=== PATIENT | male | born 1955 | race American Indian/Alaskan Native ===

== ENCOUNTER 2016-10-26 14:30 | Emergency (ER) | payer MEDICARE, OTHER ==
--- NOTE | 2016-10-26 14:58 | Emergency Department Report ---
Entered by KATHY BOWLING, acting as scribe for CHRIS MCCONNELL NP. Chief Complaint: Dizziness Stated Complaint: DIZZY,INCOHERENT/WEAKNESS/DIALYSIS 10/26 Time Seen by Provider: 10/26/16 14:41 - HPI History of Present Illness: 61 y/o male presents with dizziness that started earlier today as a result of his blood pressure dropping after dialysis today. He states they took too much fluid out. Sx include generalized weakness but pt denies chest pain or abd pain. He reports that his dizziness has improved since onset. PT's family member states he might have passed out, but she did not see it - ROS Review of Systems: +urinary incontinence +dizziness +generalized weakness -chest pain -abd pain - Exam Vital Signs: Vital Signs 10/26/16 14:42 Temperature 97.7 F Pulse Rate 61 Respiratory 20 Rate Blood Pressure 125/65 O2 Sat by Pulse 99 Oximetry Physical Exam: generalized weakness, alert and appropriate steady gait MSE screening note: Focused history and physical exam performed. Due to findings the following was ordered: ct, ekg, labs ED Disposition for MSE Condition: Stable This documentation as recorded by the scribe,KATHY BOWLING,accurately reflects the service I personally performed and the decisions made by me,CHRIS MCCONNELL , PHOTOENGRAVING [employer] APPRENTICE.
[2016-10-26 15:14] LABS: Basophils % (Auto) 0.6 % (0.0-1.8); Eosinophils % (Auto) 1.5 % (0.0-4.3); Hematocrit 37.4 % (35.5-45.6); Hemoglobin 12.3 gm/dl (11.8-15.2); Mean Corpuscular HGB Conc 33 % (32-34); Mean Corpuscular Hemoglobin 30 pg (28-32); Mean Corpuscular Volume 90 fl (84-94); Platelet Count 188 K/mm3 (140-440); Red Blood Count 4.15 M/mm3 (3.65-5.03); Red Cell Distribution Width 16.6 % (13.2-15.2); White Blood Count 4.4 K/mm3 (4.5-11.0)
[2016-10-26 15:24] LABS: INR 0.99 (0.87-1.13); Partial Thromboplastin Time 26.9 Sec. (24.2-36.6)
[2016-10-26 15:36] LABS: Albumin/Globulin Ratio 1.1 %; BUN/Creatinine Ratio 3.54; Bilirubin,Total 0.3 mg/dL (0.1-1.2); Calcium 8.6 mg/dL (8.4-10.2); Chloride 98.1 mmol/L (98-107); Potassium 3.6 mmol/L (3.6-5.0); Total Protein 7.6 g/dL (6.3-8.2)
--- NOTE | 2016-10-26 15:53 | Cat Scan Report ---
CRANIAL CT SCAN: History: Syncope. Serial contiguous axial images were obtained through the cranium. Intravenous contrast material was not administered. The ventricles are normal in size and appearance. There is no mass effect or midline shift. No areas of abnormally increased or decreased attenuation are seen. No mass lesion is seen. The mastoid air cells and visualized portions of the sinuses are normal. IMPRESSION: Cranial CT scan within normal limits.
--- NOTE | 2016-10-26 18:15 | Emergency Department Report ---
- General Chief complaint: Weakness Stated complaint: DIZZY,INCOHERENT/WEAKNESS/DIALYSIS 10/26 Time Seen by Provider: 10/26/16 14:41 Source: patient Mode of arrival: Ambulatory Limitations: No Limitations - History of Present Illness MD Complaint: generalized weakness, lack of energy -: Gradual Time: 18:12 Location: generalized Severity: moderate Improves with: none Worsens with: none Associated Symptoms: denies: chest pain, confusion, dark stools, diaphoresis, dysuria, easy bruising, fever/chills, headaches, loss of appetite, nausea/ vomiting, myalgias, shortness of breath - Related Data Home Medications Medication Instructions Recorded Confirmed Last Taken Aspirin [Aspirin BABY CHEW TAB] 81 mg PO ONCE 08/29/13 08/27/16 07/26/16 Bisoprolol Fumarate [Zebeta] 10 mg PO DAILY 04/24/15 08/27/16 07/26/16 ISOSORBIDE MONOnitrate [Imdur ER] 30 mg PO QAC 04/24/15 08/27/16 07/26/16 Albuterol Sulfate [Proair 90 mcg IH QID PRN 12/16/15 08/27/16 07/26/16 Respiclick] Atorvastatin Calcium [Lipitor] 80 mg PO QHS 12/16/15 08/27/16 07/26/16 Docusate Sodium [Colace CAP] 100 mg PO BID PRN 12/16/15 08/27/16 07/26/16 Ergocalciferol (Vitamin D2) 50,000 unit PO QWEEK 12/16/15 08/27/16 07/26/16 [Vitamin D2] Omeprazole 40 mg PO BID 12/16/15 08/27/16 07/26/16 Sertraline [Zoloft] 10 mg PO QDAY 08/27/16 08/27/16 07/26/16 Tamsulosin [Flomax] 0.4 mg PO DAILY 08/27/16 08/27/16 07/26/16 amLODIPine [Norvasc] 10 mg PO DAILY 08/27/16 08/27/16 07/26/16 cloNIDine [Clonidine] 1 each TRANSDERMA QWEEK 08/27/16 08/27/16 07/25/16 Previous Rx's Medication Instructions Recorded Last Taken Type Losartan [Cozaar] 50 mg PO QDAY #30 10/12/16 05/22/17 Rx hydrALAZINE [Apresoline TAB] 25 mg PO TID #90 tablet 12/17/15 07/26/16 Rx Prasugrel [Effient] 10 mg PO QDAY #30 tablet 12/20/15 07/26/16 Rx Allergies Allergy/AdvReac Type Severity Reaction Status Date / Time metformin Allergy Intermediate Diarrhea Verified 08/27/16 12:21 lisinopril Allergy Unknown Verified 08/27/16 12:21 ED Review of Systems ROS: Stated complaint: DIZZY,INCOHERENT/WEAKNESS/DIALYSIS 10/26 Other details as noted in HPI Comment: All other systems reviewed and negative ED Past Medical Hx - Past Medical History Previous Medical History?: Yes Hx Hypertension: Yes Hx Heart Attack/AMI: Yes Hx Congestive Heart Failure: Yes Hx Diabetes: Yes Hx GERD: Yes Hx Liver Disease: Yes (Hepatitis C) Hx Renal Disease: Yes (CKD) Hx Asthma: No Hx COPD: No Hx HIV: No Additional medical history: HEP C, HIGH CHOLESTEROL - Surgical History Past Surgical History?: Yes Hx Pacemaker: No Hx Internal Defibrillator: No Additional Surgical History: left inguinal hernia - Social History Smoking Status: Never Smoker Substance Use Type: None - Medications Home Medications: Home Medications Medication Instructions Recorded Confirmed Last Taken Type Aspirin [Aspirin BABY CHEW TAB] 81 mg PO ONCE 08/29/13 08/27/16 07/26/16 History Bisoprolol Fumarate [Zebeta] 10 mg PO DAILY 04/24/15 08/27/16 07/26/16 History ISOSORBIDE MONOnitrate [Imdur ER] 30 mg PO QAC 04/24/15 08/27/16 07/26/16 History Albuterol Sulfate [Proair 90 mcg IH QID PRN 12/16/15 08/27/16 07/26/16 History Respiclick] Atorvastatin Calcium [Lipitor] 80 mg PO QHS 12/16/15 08/27/16 07/26/16 History Docusate Sodium [Colace CAP] 100 mg PO BID PRN 12/16/15 08/27/16 07/26/16 History Ergocalciferol (Vitamin D2) 50,000 unit PO QWEEK 12/16/15 08/27/16 07/26/16 History [Vitamin D2] Omeprazole 40 mg PO BID 12/16/15 08/27/16 07/26/16 History Losartan [Cozaar] 50 mg PO QDAY #30 12/17/15 08/27/16 07/26/16 Rx hydrALAZINE [Apresoline TAB] 25 mg PO TID #90 tablet 12/17/15 08/27/16 07/26/16 Rx Prasugrel [Effient] 10 mg PO QDAY #30 tablet 12/20/15 08/27/16 07/26/16 Rx Sertraline [Zoloft] 10 mg PO QDAY 08/27/16 08/27/16 07/26/16 History Tamsulosin [Flomax] 0.4 mg PO DAILY 08/27/16 08/27/16 07/26/16 History amLODIPine [Norvasc] 10 mg PO DAILY 08/27/16 08/27/16 07/26/16 History cloNIDine [Clonidine] 1 each TRANSDERMA QWEEK 08/27/16 08/27/16 07/25/16 History ED Physical Exam - General Limitations: No Limitations General appearance: alert, in no apparent distress - Head Head exam: Present: atraumatic, normocephalic - Eye Eye exam: Present: normal appearance, PERRL - ENT ENT exam: Present: mucous membranes moist - Neck Neck exam: Present: normal inspection - Respiratory Respiratory exam: Present: normal lung sounds bilaterally. Absent: respiratory distress - Cardiovascular Cardiovascular Exam: Present: regular rate, normal rhythm. Absent: systolic murmur, diastolic murmur, rubs, gallop - GI/Abdominal GI/Abdominal exam: Present: soft, normal bowel sounds - Rectal Rectal exam: Present: deferred - Extremities Exam Extremities exam: Present: normal inspection - Back Exam Back exam: Present: normal inspection - Neurological Exam Neurological exam: Present: alert, oriented X3 - Psychiatric Psychiatric exam: Present: normal affect, normal mood - Skin Skin exam: Present: warm, dry, intact, normal color. Absent: rash ED Course Vital Signs 10/26/16 14:42 Temperature 97.7 F Pulse Rate 61 Respiratory 20 Rate Blood Pressure 125/65 O2 Sat by Pulse 99 Oximetry ED Medical Decision Making - Lab Data Result diagrams: 10/26/16 14:56 10/26/16 14:56 - EKG Data When compared to previous EKG there are: no significant change Interpretation: no acute changes - Radiology Data Radiology results: report reviewed, image reviewed - Medical Decision Making patient doing well, no complaints labs unchanged, doesnt want to stay and wished to go home/ Critical care attestation.: If time is entered above; I have spent that time in minutes in the direct care of this critically ill patient, excluding procedure time. ED Disposition Clinical Impression: ESRD (end stage renal disease), Hypotension Disposition: DC-01 TO HOME OR SELFCARE Is pt being admited?: No Does the pt Need Aspirin: No Condition: Good Referrals: PRIMARY CARE, [Primary Care Provider] - 3-5 Days Time of Disposition: 18:13
[2016-10-26 18:20] VITALS: BP 170/73
== END 2016-10-26 19:46 | disposition home or self-care (01) ==
LOC: ED 14:30
DX: I95.9 Hypotension, unspecified (principal); E11.22 Type 2 diabetes mellitus with diabetic chronic kidney disease; I12.0 Hypertensive chronic kidney disease with stage 5 chronic kidney disease or end stage renal disease; N18.6 End stage renal disease; I50.9 Heart failure, unspecified; K21.9 Gastro-esophageal reflux disease without esophagitis
CPT/HCPCS: 36415; 70450; 80053; 80061; 82962; 84484; 85025; 85610; 85730; 93005; 93010

== ENCOUNTER 2019-01-30 01:13 | Inpatient (IN) | payer MEDICARE, OTHER ==
--- NOTE | 2019-01-30 02:47 | XRay Report ---
CHEST 1 VIEW, 01/30/2019 2:24 AM CLINICAL INFORMATION/INDICATION: Right-sided chest pain COMPARISON: Chest radiograph, 12/17/2015 FINDINGS: SUPPORT DEVICES: None. HEART: The cardiac silhouette is moderately enlarged. LUNGS/PLEURA: Faint interstitial prominence suggests pulmonary vascular congestion. There is no focal airspace consolidation or significant pleural effusion. ADDITIONAL FINDINGS: No additional acute findings. IMPRESSION: 1. Moderate enlargement of the cardiac silhouette. 2. Faint interstitial prominence suggesting vascular congestion. Signer Name: Rufina Healy MD Signed: 01/30/2019 2:43 AM Workstation Name: [id number]
[2019-01-30 03:04] LABS: Basophils % (Auto) 0.4 % (0.0-1.8); Eosinophils # (Auto) 0.1 K/mm3 (0.0-0.4); Eosinophils % (Auto) 0.7 % (0.0-4.3); Hematocrit 29.6 % (35.5-45.6); Lymphocytes # (Auto) 0.5 K/mm3 (1.2-5.4); Lymphocytes % (Auto) 6.2 % (13.4-35.0); Mean Corpuscular HGB Conc 34 % (32-34); Mean Corpuscular Volume 92 fl (84-94); Monocytes # (Auto) 0.4 K/mm3 (0.0-0.8); Monocytes % (Auto) 4.9 % (0.0-7.3); Platelet Count 161 K/mm3 (140-440); Red Blood Count 3.22 M/mm3 (3.65-5.03); Red Cell Distribution Width 16.3 % (13.2-15.2)
[2019-01-30] MEDS ORDERED: levoFLOXacin 750 MG TAB PO ONE (03:22)
[2019-01-30] MEDS ORDERED: oxyCODONE /ACETAMINOPHEN 5-325MG TAB PO ONE (03:22)
--- NOTE | 2019-01-30 03:22 | Emergency Department Report ---
ED Chest Pain HPI - General Chief Complaint: Chest Pain Stated Complaint: ANGEL CHEST PAIN Time Seen by Provider: 01/30/19 03:12 Source: patient Mode of arrival: Wheelchair Limitations: No Limitations - History of Present Illness Initial Comments: Mr. Reyes is a very pleasant 63-year-old male with history of end-stage renal disease on dialysis Tuesday, congestive heart failure, diabetes mellitus, GERD, coronary artery disease, hypertension, hepatitis C, dyslipidemia who presents with right-sided chest pain since 9 PM. He has shortn ess of breath nausea. He has productive cough. Also has been swelling belching. Pain is worse with cough. Sharp aching pain. No radiation. Subjective fever and chills. History of tobacco abuse. Productive cough has been present for [address] [facility] Martin Smiley MD Complaint: chest pain -: Gradual, This evening Onset: during rest Pain Location: right chest Pain Radiation: none Severity: moderate Quality: sharp Consistency: constant Improves With: nothing Worsens With: other (cough) Other Symptoms: cough - Related Data Home Medications Medication Instructions Recorded Confirmed Last Taken Aspirin [Aspirin BABY CHEW TAB] 81 mg PO ONCE 08/29/13 08/27/16 07/26/16 Bisoprolol Fumarate [Zebeta] 10 mg PO DAILY 04/24/15 08/27/16 07/26/16 ISOSORBIDE MONOnitrate [Imdur ER] 30 mg PO QAC 04/24/15 08/27/16 07/26/16 Albuterol Sulfate [Proair 90 mcg IH QID PRN 12/16/15 08/27/16 07/26/16 Respiclick] Atorvastatin Calcium [Lipitor] 80 mg PO QHS 12/16/15 08/27/16 07/26/16 Docusate Sodium [Colace CAP] 100 mg PO BID PRN 12/16/15 08/27/16 07/26/16 Ergocalciferol (Vitamin D2) 50,000 unit PO QWEEK 12/16/15 08/27/16 07/26/16 [Vitamin D2] Omeprazole 40 mg PO BID 12/16/15 08/27/16 07/26/16 Sertraline [Zoloft] 10 mg PO QDAY 08/27/16 08/27/16 07/26/16 Tamsulosin [Flomax] 0.4 mg PO DAILY 08/27/16 08/27/16 07/26/16 amLODIPine 10 mg PO DAILY 08/27/16 08/27/16 07/26/16 cloNIDine [Clonidine] 1 each TRANSDERMA QWEEK 08/27/16 08/27/16 07/25/16 Previous Rx's Medication Instructions Recorded Last Taken Type Losartan [Cozaar] 50 mg PO QDAY #30 12/17/15 07/26/16 Rx hydrALAZINE [Apresoline TAB] 25 mg PO TID #90 tablet 12/17/15 07/26/16 Rx Prasugrel [Effient] 10 mg PO QDAY #30 tablet 12/20/15 07/26/16 Rx Allergies Allergy/AdvReac Type Severity Reaction Status Date / Time metformin Allergy Intermediate Diarrhea Verified 08/27/16 12:21 lisinopril Allergy Unknown Verified 08/27/16 12:21 Heart Score - HEART Score History: Slightly suspicious EKG: Significant ST-depression Age: 45-65 Risk factors: > 3 risk factors or hx of atherosclerotic disease Troponin: < normal limit HEART Score: 5 ED Review of Systems ROS: Stated complaint: ANGEL CHEST PAIN Other details as noted in HPI Comment: All other systems reviewed and negative Constitutional: denies: fever, malaise Respiratory: cough, shortness of breath Cardiovascular: chest pain ED Past Medical Hx - Past Medical History Previous Medical History?: Yes Hx Hypertension: Yes Hx Heart Attack/AMI: Yes Hx Congestive Heart Failure: Yes Hx Diabetes: Yes Hx GERD: Yes Hx Liver Disease: Yes (Hepatitis C) Hx Renal Disease: Yes (CKD) Hx Asthma: No Hx COPD: No Hx HIV: No Additional medical history: HEP C, HIGH CHOLESTEROL - Surgical History Past Surgical History?: Yes Hx Pacemaker: No Hx Internal Defibrillator: No Additional Surgical History: left inguinal hernia - Social History Smoking Status: Current Every Day Smoker - Medications Home Medications: Home Medications Medication Instructions Recorded Confirmed Last Taken Type Aspirin [Aspirin BABY CHEW TAB] 81 mg PO ONCE 08/29/13 08/27/16 07/26/16 History Bisoprolol Fumarate [Zebeta] 10 mg PO DAILY 04/24/15 08/27/16 07/26/16 History ISOSORBIDE MONOnitrate [Imdur ER] 30 mg PO QAC 04/24/15 08/27/16 07/26/16 History Albuterol Sulfate [Proair 90 mcg IH QID PRN 12/16/15 08/27/16 07/26/16 History Respiclick] Atorvastatin Calcium [Lipitor] 80 mg PO QHS 12/16/15 08/27/16 07/26/16 History Docusate Sodium [Colace CAP] 100 mg PO BID PRN 12/16/15 08/27/16 07/26/16 History Ergocalciferol (Vitamin D2) 50,000 unit PO QWEEK 12/16/15 08/27/16 07/26/16 Hist ory [Vitamin D2] Omeprazole 40 mg PO BID 12/16/15 08/27/16 07/26/16 History Losartan [Cozaar] 50 mg PO QDAY #30 12/17/15 08/27/16 07/26/16 Rx hydrALAZINE [Apresoline TAB] 25 mg PO TID #90 tablet 12/17/15 08/27/16 07/26/16 Rx Prasugrel [Effient] 10 mg PO QDAY #30 tablet 12/20/15 08/27/16 07/26/16 Rx Sertraline [Zoloft] 10 mg PO QDAY 08/27/16 08/27/16 07/26/16 History Tamsulosin [Flomax] 0.4 mg PO DAILY 08/27/16 08/27/16 07/26/16 History amLODIPine 10 mg PO DAILY 08/27/16 08/27/16 07/26/16 History cloNIDine [Clonidine] 1 each TRANSDERMA QWEEK 08/27/16 08/27/16 07/25/16 History ED Physical Exam - General Limitations: No Limitations General appearance: alert, in no apparent distress, other (frequent cough) - Head Head exam: Present: atraumatic, normocephalic - Eye Eye exam: Present: conjunctival injection - ENT ENT exam: Present: mucous membranes moist - Neck Neck exam: Present: normal inspection, full ROM - Respiratory Respiratory exam: Present: normal lung sounds bilaterally. Absent: respiratory distress, wheezes, rales, rhonchi - Cardiovascular Cardiovascular Exam: Present: regular rate, normal rhythm, normal heart sounds. Absent: systolic murmur, diastolic murmur, rubs, gallop - GI/Abdominal GI/Abdominal exam: Present: soft, normal bowel sounds. Absent: distended, tenderness, guarding, rebound - Rectal Rectal exam: Present: deferred - Extremities Exam Extremities exam: Present: normal inspection - Neurological Exam Neurological exam: Present: alert, oriented X3 - Psychiatric Psychiatric exam: Present: normal affect, normal mood - Skin Skin exam: Present: warm, dry, intact, normal color. Absent: rash ED Course Vital Signs 01/30/19 01/30/19 01:32 02:04 Temperature 98.5 F 98.5 F Pulse Rate 102 H 106 H Respiratory 18 18 Rate Blood Pressure 201/97 201/97 O2 Sat by Pulse 97 Oximetry JASSI score - Jassi Score Age > 65: (0) No Aspirin use within the Past 7 Days: (1) Yes 3 or more CAD Risk Factors: (1) Yes 2 or more Angina events in past 24 hrs: (1) Yes Known CAD with more than 50% Stenosis: (0) No Elevated Cardiac Markers: (1) Yes ST Deviation Greater than 0.5mm: (0) No JASSI Score: 4 ED Medical Decision Making - Lab Data Result diagrams: 01/30/19 02:41 01/30/19 02:41 - EKG Data 01/30/19 03:21 EKG obtained 0122 Sinus tachycardia rate 112 beats a minute normal axis prolonged QT interval positive LVH no significant ST elevation comparable to EKGs obtained in 2016 and 201601/30/19 03:22 - Radiology Data Radiology results: report reviewed Vascular congestion, enlarged cardiac silhouette according to chest radiograph CT angio chest: Extensive right lung pneumonia no pulmonary embolism - Medical Decision Making HCAP admitted to hospitalist service, Mr. Reyes did receive IV contrast for CTA Dr. Hanson graciously agreed to consult on patient and arrange dialysis Dr. Eller accepted Mr. Reyes to the hospitalist service Critical care attestation.: If time is entered above; I have spent that time in minutes in the direct care of this critically ill patient, excluding procedure time. ED Disposition Clinical Impression: HCAP (healthcare-associated pneumonia), ESRD (end stage renal disease) on dialysis, Hypertensive urgency Disposition: OP ADMIT IP TO THIS HOSP Is pt being admited?: Yes Does the pt Need Aspirin: No Condition: Stable Instructions: Bacterial Pneumonia (ED)
--- NOTE | 2019-01-30 04:38 | Cat Scan Report ---
CTA CHEST WITH IV CONTRAST, 01/30/2019 INDICATION: Shortness of breath TECHNIQUE: Axial CT images were obtained through the chest after injection of IV contrast. Coronal oblique 2-D reconstruction images were produced. 3 plane MIP reconstruction images were produced at an [employer] workstation. All CTs at this facility utilize dose reduction techniques including automated expos ure control, iterative reconstruction and weight based dosing when appropriate to reduce patient radi ation dose to as low as reasonable achievable. COMPARISON: Chest radiograph, 01/30/2019 FINDINGS: No filling defects are visualized within the central or segmental pulmonary arteries to suggest pulmo nary embolism. The heart is moderately enlarged. Evaluation of the lung parenchyma demonstrates diffu se airspace disease throughout the right lung. The left lung appears grossly clear. There is mild dany ateral interstitial thickening. There is no evidence of pleural effusion. Limited imaging of the upper abdomen demonstrates atherosclerotic vascular calcifications within the visualized mesenteric vessels. There is a single calcified stone within the gallbladder measuring 2 c m.. IMPRESSION: 1. No evidence of pulmonary embolism. 2. Diffuse right lung airspace disease most compatible with pneumonia. 3. Nonspecific bilateral interstitial thickening that can be related to mild pulmonary edema. 4. Moderate cardiomegaly. Signer Name: Rufina Healy MD Signed: 01/30/2019 4:33 AM Workstation Name: [id number]
[2019-01-30 04:59] LABS: Calcium 9.6 mg/dL (8.4-10.2); Chol/HDL Ratio 4.17 %
[2019-01-30] MEDS ORDERED: VANCOMYCIN PHARMACY TO DOSE IV SCH (05:00)
[2019-01-30] MEDS ORDERED: VANCOMYCIN 1,500 MG in SODIUM CHLORIDE 0.9% 500 ML 500 ML IV ONE (05:00)
[2019-01-30] MEDS: CEFEPIME/NS 1 GM/100 ML 1 GM/100 ML BAG IV SCH (05:15)
[2019-01-30] MEDS ORDERED: CEFEPIME/NS 2 GM/100 ML 2 GM/100 ML BAG IV SCH (06:00)
[2019-01-30] MEDS ORDERED: guaiFENesin DM 200/20 MG ORAL LIQD 10 ML ONE (06:12)
[2019-01-30] MEDS ORDERED: guaiFENesin DM 200/20 MG ORAL LIQD 10 ML PO PRN (06:15)
[2019-01-30] MEDS ORDERED: hydrALAZINE 20 MG/1 ML INJ IV ONE ×2 (06:49→08:25)
[2019-01-30] MEDS ORDERED: hydrALAZINE 20 MG/1 ML INJ ONE ×2 (06:49→08:40)
[2019-01-30] MEDS ORDERED: SODIUM CHLORIDE 0.9% 100 ML IV PRN ×2 (07:33→11:30)
[2019-01-30] MEDS ORDERED: ONDANSETRON 4 MG/2 ML INJ IV PRN (08:24)
[2019-01-30] MEDS ORDERED: NON-FORMULARY EACH (Albuterol Sulfate [Proair Respiclick] 90 MCG) IH PRN (08:37)
[2019-01-30] MEDS ORDERED: ONDANSETRON 4 MG/2 ML INJ ONE (08:40)
[2019-01-30] MEDS ORDERED: ASPIRIN 81 MG TAB CHEW PO SCH (09:00)
[2019-01-30] MEDS ORDERED: ERGOCALCIFEROL 50000 UNIT PO SCH (10:00)
[2019-01-30] MEDS ORDERED: BISOPROLOL FUMARATE 10 MG PO SCH (10:00)
[2019-01-30] MEDS ORDERED: LOSARTAN 50 MG PO SCH (10:00)
--- NOTE | 2019-01-30 10:38 | Consultation ---
History of Present Illness - Reason for Consult end stage renal disease - History of Present Illness Mr. Reyes is a 63-year-old male with history of ESRD on HD Tuesday, CHF, diabetes mellitus, GERD, coronary artery disease, hypertension, hepatitis C, dyslipidemia who presents with right-sided chest pain, shortness of breath. Noted to have productive cough. Admitted for likely pneumonia and chest pain rule out. He usually follows with digital court reporter Dr. Lara and dialyzes at [facility]. Denies any recent issues with HD. Seen on HD at time of consult, no issues noted. Past History Past Medical History: diabetes, dialysis, ESRD, heart failure, hypertension Past Surgical History: No surgical history Social history: no significant social history Family history: no significant family history Medications and Allergies Allergies Allergy/AdvReac Type Severity Reaction Status Date / Time metformin Allergy Intermediate Diarrhea Verified 08/27/16 12:21 lisinopril Allergy Unknown Verified 08/27/16 12:21 Home Medications Medication Instructions Recorded Confirmed Last Taken Type Aspirin [Aspirin BABY CHEW TAB] 81 mg PO ONCE 08/29/13 08/27/16 07/26/16 History Bisoprolol Fumarate [Zebeta] 10 mg PO DAILY 04/24/15 08/27/16 07/26/16 History ISOSORBIDE MONOnitrate [Imdur ER] 30 mg PO QAC 04/24/15 08/27/16 07/26/16 History Albuterol Sulfate [Proair 90 mcg IH QID PRN 12/16/15 08/27/16 07/26/16 History Respiclick] Atorvastatin Calcium [Lipitor] 80 mg PO QHS 12/16/15 08/27/16 07/26/16 History Docusate Sodium [Colace CAP] 100 mg PO BID PRN 12/16/15 08/27/16 07/26/16 History Ergocalciferol (Vitamin D2) 50,000 unit PO QWEEK 12/16/15 08/27/16 07/26/16 History [Vitamin D2] Omeprazole 40 mg PO BID 12/16/15 08/27/16 07/26/16 History Losartan [Cozaar] 50 mg PO QDAY #30 12/17/15 08/27/16 07/26/16 Rx hydrALAZINE [Apresoline TAB] 25 mg PO TID #90 tablet 12/17/15 08/27/16 07/26/16 Rx Prasugrel [Effient] 10 mg PO QDAY #30 tablet 12/20/15 08/27/16 07/26/16 Rx Sertraline [Zoloft] 10 mg PO QDAY 08/27/16 08/27/16 07/26/16 History Tamsulosin [Flomax] 0.4 mg PO DAILY 08/27/16 08/27/16 07/26/16 History amLODIPine 10 mg PO DAILY 08/27/16 08/27/16 07/26/16 History cloNIDine [Clonidine] 1 each TRANSDERMA QWEEK 08/27/16 08/27/16 07/25/16 History Active Meds: Active Medications Amlodipine Besylate (Amlodipine) 10 mg PO DAILY [facility] Aspirin (Baby Aspirin) 81 mg PO ONCE [facility] Stop: 01/30/19 11:00 Atorvastatin Calcium (Lipitor) 80 mg PO QHS [facility] Clonidine HCl (Catapres-Tts Patch) mg TD QWEEK [facility] Docusate Sodium (Colace) 100 mg PO BID PRN PRN Reason: Constipation Guaifenesin (Guaifenesin Dm Syrup) 10 ml PO Q6HR PRN PRN Reason: Cough Last Admin: 01/30/19 06:26 Dose: 10 ml Documented by: Hydralazine HCl (Apresoline) 25 mg PO TID [facility] Cefepime HCl (Cefepime/Ns 1 Gm/100 Ml) 1 gm in 100 mls @ 200 mls/hr IV Q24H [facility]; Protocol Last Admin: 01/30/19 05:15 Dose: 200 mls/hr Documented by: Sodium Chloride (Nacl 0.9%) 100 mls @ 999 mls/hr IV LUIS PRN PRN Reason: Hypotension Sodium Chloride (Nacl 0.9%) 100 mls @ 999 mls/hr IV LUIS PRN PRN Reason: Hypotension Isosorbide Mononitrate (Imdur) 30 mg PO QAC [facility] Miscellaneous Medication (Losartan [Cozaar]) 50 mg PO QDAY [facility] Miscellaneous Medication (Ergocalciferol (Vitamin D2) [Vitamin D2]) 50,000 unit PO QWEEK [facility] Miscellaneous Medication (Bisoprolol Fumarate [Zebeta]) 10 mg PO DAILY [facility] Miscellaneous Medication (Albuterol Sulfate [Proair Respiclick]) 90 mcg IH QID PRN PRN Reason: Shortness Of Breath Ondansetron HCl (Zofran) 4 mg IV Q6H PRN PRN Reason: Nausea And Vomiting Last Admin: 01/30/19 08:48 Dose: 4 mg Documented by: Prasugrel (Effient) 10 mg PO QDAY [facility] Sertraline HCl (Zoloft) 10 mg PO QDAY [facility] Tamsulosin HCl (Flomax) 0.4 mg PO DAILY [facility] Review of Systems All systems: negative (as per HPI) Exam - Vital Signs Vital signs: Vital Signs Temp Pulse Resp BP Pulse Ox 98.5 F 102 H 18 201/97 97 01/30/19 01:32 01/30/19 01:32 01/30/19 01:32 01/30/19 01:32 01/30/19 01:32 - General Appearance General appearance: well-developed, well-nourished, appears stated age EENT: PERRL, mucous membranes moist Neck: Present: neck supple, trachea midline Respiratory: Clear to Ascultation Heart: regular, S1S2 Gastrointestinal: Present: normoactive bowel sounds. Absent: tenderness, distended Integumentary: no rash, warm and dry Neurologic: no focal deficit, no asterixis Musculoskeletal: Absent: deformities Psychiatric: mood/affect appropriate Results - Lab Results 01/30/19 02:41 01/30/19 02:41 Most recent lab results Calcium 9.6 mg/dL (8.4-10.2) 01/30/19 02:41 Assessment and Plan This is a 63 year old man with ESRD who presents with concerns for chest pain and pneumonia. # ESRD: will continue HD // or prn based on labs/volume. Due for HD today - avoid nephrotoxins - renal diet - renally dose medications - access intact - daily renal labs # HTN/Volume: remains with BP uncontrolled with systolic in 190s. UF as donato erated with HD, resume home medications, and will monitor # Anemia of CKD: hemoglobin at goal, ESAs as indicated # Secondary Hyperparathyroidism: continue home binders, will provide vitamin D analog if indicated # Tropinemia: possibly stress induced, follow up with cardiology recommendations # Pneumonia: antibiotics per primary
[2019-01-30] MEDS ORDERED: ALBUTEROL 2.5 MG/3 ML NEBU IH PRN (11:53)
[2019-01-30] MEDS ORDERED: DOCUSATE SODIUM 100 MG CAP PO PRN (12:00)
[2019-01-30] MEDS ORDERED: cloNIDine TTS 0.3 MG/24 HR PATCH TD SCH (12:00)
[2019-01-30] MEDS ORDERED: LOSARTAN 50 MG TAB PO SCH (12:00)
[2019-01-30] MEDS ORDERED: hydrALAZINE 25 MG TAB PO SCH (14:00)
[2019-01-30 14:20] LABS: Hepatitis B Surface Antigen Non-Reactive (Negative); Hepatitis C Virus Antibody Reactive (NonReactive)
--- NOTE | 2019-01-30 14:23 | History and Physical Report ---
History of Present Illness Date of examination: 01/23/19 Date of admission: 01/30/19 07:03 Chief complaint: Chest pain shortness of breath History of present illness: 63-year-old male patient with significant past medical history of end-stage renal disease on hemodialysis ,coronary artery disease status post PCI to proximal RCA in 2016, congestive heart failure ,hypertension ,hepatitis C, dyslipidemia ,diabetes mellitus, presented to the emergency room with Right-sided chest pain shortness of breath and nausea since last night Patient also complains of productive cough Grade sister's pain between 4-5/10 at its peak, associated with nausea . Initial workup is consistent with acute respiratory failure secondary to fluid overload Positive cardiac enzymes, VQ scan negative for PE Schedule for hemodialysis today. Follows [facility] Past History Past Medical History: diabetes, dialysis, ESRD, heart failure, hypertension Past Surgical History: Other (AV fistula) Social history: lives with family, smoking. denies: alcohol abuse, prescription drug abuse Family history: hypertension Medications and Allergies Allergies Allergy/AdvReac Type Severity Reaction Status Date / Time metformin Allergy Intermediate Diarrhea Verified 08/27/16 12:21 lisinopril Allergy Unknown Verified 08/27/16 12:21 Home Medications Medication Instructions Recorded Confirmed Last Taken Type Aspirin [Aspirin BABY CHEW TAB] 81 mg PO ONCE 08/29/13 08/27/16 07/26/16 History Bisoprolol Fumarate [Zebeta] 10 mg PO DAILY 04/24/15 08/27/16 07/26/16 History ISOSORBIDE MONOnitrate [Imdur ER] 30 mg PO QAC 04/24/15 08/27/16 07/26/16 History Albuterol Sulfate [Proair 90 mcg IH QID PRN 12/16/15 08/27/16 07/26/16 History Respiclick] Atorvastatin Calcium [Lipitor] 80 mg PO QHS 12/16/15 08/27/16 07/26/16 History Docusate Sodium [Colace CAP] 100 mg PO BID PRN 12/16/15 08/27/16 07/26/16 History Ergocalciferol (Vitamin D2) 50,000 unit PO QWEEK 12/16/15 08/27/16 07/26/16 History [Vitamin D2] Omeprazole 40 mg PO BID 12/16/15 08/27/16 07/26/16 History Losartan [Cozaar] 50 mg PO QDAY #30 12/17/15 08/27/16 07/26/16 Rx hydrALAZINE [Apresoline TAB] 25 mg PO TID #90 tablet 12/17/15 08/27/16 07/26/16 Rx Prasugrel [Effient] 10 mg PO QDAY #30 tablet 12/20/15 08/27/16 07/26/16 Rx Sertraline [Zoloft] 10 mg PO QDAY 08/27/16 08/27/16 07/26/16 History Tamsulosin [Flomax] 0.4 mg PO DAILY 08/27/16 08/27/16 07/26/16 History amLODIPine 10 mg PO DAILY 08/27/16 08/27/16 07/26/16 History cloNIDine [Clonidine] 1 each TRANSDERMA QWEEK 08/27/16 08/27/16 07/25/16 History Active Meds: Active Medications Albuterol (Proventil) 2.5 mg IH Q4HRT PRN PRN Reason: Shortness Of Breath Amlodipine Besylate (Amlodipine) 10 mg PO DAILY [facility] Atorvastatin Calcium (Lipitor) 80 mg PO QHS [facility] Clonidine HCl (Catapres-Tts Patch) 0.3 mg TD Tu [facility] Docusate Sodium (Colace) 100 mg PO BID PRN PRN Reason: Constipation Guaifenesin (Guaifenesin Dm Syrup) 10 ml PO Q6HR PRN PRN Reason: Cough Last Admin: 01/30/19 06:26 Dose: 10 ml Documented by: Hydralazine HCl (Apresoline) 25 mg PO TID [facility] Cefepime HCl (Cefepime/Ns 1 Gm/100 Ml) 1 gm in 100 mls @ 200 mls/hr IV Q24H [facility]; Protocol Last Admin: 01/30/19 05:15 Dose: 200 mls/hr Documented by: Sodium Chloride (Nacl 0.9%) 100 mls @ 999 mls/hr IV LUIS PRN PRN Reason: Hypotension Sodium Chloride (Nacl 0.9%) 100 mls @ 999 mls/hr IV LUIS PRN PRN Reason: Hypotension Isosorbide Mononitrate (Imdur) 30 mg PO QAC [facility] Losartan Potassium (Cozaar) 50 mg PO QDAY [facility] Miscellaneous Medication (Ergocalciferol (Vitamin D2) [Vitamin D2]) 50,000 unit PO QWEEK [facility] Miscellaneous Medication (Bisoprolol Fumarate [Zebeta]) 10 mg PO DAILY [facility] Ondansetron HCl (Zofran) 4 mg IV Q6H PRN PRN Reason: Nausea And Vomiting Last Admin: 01/30/19 08:48 Dose: 4 mg Documented by: Prasugrel (Effient) 10 mg PO QDAY [facility] Sertraline HCl (Zoloft) 10 mg PO QDAY [facility] Tamsulosin HCl (Flomax) 0.4 mg PO DAILY [facility] Review of Systems Constitutional: weakness, no weight loss, no weight gain Ears, nose, mouth and throat: no nasal congestion, no nasal discharge Cardiovascular: chest pain, shortness of breath, no orthopnea, no palpitations Respiratory: cough with sputum, shortness of breath Gastrointestinal: nausea, no abdominal pain, no vomiting Genitourinary Male: no dysuria, no flank pain Musculoskeletal: no myalgias, no arthritis Integumentary: no rash, no lesions Neurological: no seizures, no syncope Psychiatric: no anxiety, no depression Endocrine: no cold intolerance, no heat intolerance Hematologic/Lymphatic: no easy bruising, no easy bleeding Allergic/Immunologic: no urticaria, no allergic rhinitis Exam - Constitutional Vitals: Temp Pulse Resp BP Pulse Ox 98.2 F 102 H 24 181/93 95 01/30/19 09:05 01/30/19 11:30 01/30/19 09:36 01/30/19 11:30 01/30/19 09:36 General appearance: Present: no acute distress, well-nourished - EENT Eyes: Present: PERRL, EOM intact - Neck Neck: Present: supple, normal ROM - Respiratory Respiratory effort: normal Respiratory: bilateral: diminished, rales, negative: rhonchi, wheezing - Cardiovascular Rhythm: regular Heart Sounds: Present: S1 & S2 - Extremities Extremities: no ischemia, No edema - Abdominal General gastrointestinal: Present: soft, non-tender, non-distended, normal bowel sounds - Integumentary Integumentary: Present: clear, warm - Musculoskeletal Musculoskeletal: strength equal bilaterally, generalized weakness - Psychiatric Psychiatric: appropriate mood/affect, cooperative - Neurologic Neurologic: CNII-XII intact, moves all extremities Results - Labs CBC & Chem 7: 01/30/19 02:41 01/30/19 02:41 Labs: Abnormal lab results 01/30/19 01/30/19 01/30/19 Range/Units 02:41 02:41 05:09 RBC 3.22 L (3.65-5.03) M/mm3 Hgb 10.0 L (11.8-15.2) gm/dl Hct 29.6 L (35.5-45.6) % RDW 16.3 H (13.2-15.2) % Lymph % (Auto) 6.2 L (13.4-35.0) % Lymph # 0.5 L (1.2-5.4) K/mm3 Seg Neutrophils % 87.8 H (40.0-70.0) % Carbon Dioxide 20 L (22-30) mmol/L BUN 67 H (9-20) mg/dL Creatinine 13.9 H (0.8-1.5) mg/dL Glucose 186 H (75-100) mg/dL Troponin T 0.156 H* 0.157 H* (0.00-0.029) ng/mL Hepatitis C Antibody (NonReactive) 01/30/19 Range/Units 08:52 RBC (3.65-5.03) M/mm3 Hgb (11.8-15.2) gm/dl Hct (35.5-45.6) % RDW (13.2-15.2) % Lymph % (Auto) (13.4-35.0) % Lymph # (1.2-5.4) K/mm3 Seg Neutrophils % (40.0-70.0) % Carbon Dioxide (22-30) mmol/L BUN (9-20) mg/dL Creatinine (0.8-1.5) mg/dL Glucose (75-100) mg/dL Troponin T (0.00-0.029) ng/mL Hepatitis C Antibody Reactive A (NonReactive) Assessment and Plan --Chest pain/non-ST elevation MA Probably nonspecific in the setting of end-stage renal disease However patient has multiple risk factors Serial cardiac enzymes, continue current cardiac medications Cardiology consult --History of coronary artery disease status post PCI[2016 Continue current cardiac medications Cardiology consult. --End-stage renal disease on hemodialysis; Nephrology following, HD per schedule --Hypertension; uncontrolled Resume home antihypertensives and when necessary medications --Dyslipidemia; statin --DVT prophylaxis; heparin renal dose Monitor closely and adjust management as needed Plan of care is reviewed with the patient and his nurse Follow consults and recommendations
--- NOTE | 2019-01-30 15:58 | Consultation ---
History of Present Illness Consult date: 01/30/19 Requesting physician: TONY BA Consult reason: chest pain History of present illness: The pt is a 63-year-old male with history of CAD s/p PCI, ESRD on HD Tuesday, diabetes mellitus, GERD, hypertension, hepatitis C, dyslipidemia. He has been seen by our practice on prior hospitalizations but has been noncompliant with OP follow up. He presented with c/o "pneumonia". He states that he was experiencing SOB, cough and chest pain for several days prior to arrival. He missed dialysis twice because he did not feel well enough to go. He describes his chest pain as a midsternal "pain" which is aggravated by deep inspiration and coughing. He denies any fever, chills, palpitations, n/v, diaphoresis, dizziness or syncope. Chest CTA negative for PE, shows diffuse right lung airspace disease compatible with PNA. LHC done 12/2015 with PCI of prox RCA with ANGELINE, left main patent, LAD mid 30- 40%, diagonal 1 prox 40-50%, ramus mid 50-60%, OM1 50-60%. Echo 10/2013: mild MR, trace TR, mild to moderate LVH, EF 45-50%, pseudonormalization Past History Past Medical History: diabetes, dialysis, ESRD, heart failure, hypertension Past Surgical History: Other (AV fistula) Social history: lives with family, smoking. denies: alcohol abuse, prescription drug abuse Family history: hypertension Medications and Allergies Allergies Allergy/AdvReac Type Severity Reaction Status Date / Time metformin Allergy Intermediate Diarrhea Verified 08/27/16 12:21 lisinopril Allergy Unknown Verified 08/27/16 12:21 Home Medications Medication Instructions Recorded Confirmed Last Taken Type Aspirin [Aspirin BABY CHEW TAB] 81 mg PO ONCE 08/29/13 08/27/16 07/26/16 History Bisoprolol Fumarate [Zebeta] 10 mg PO DAILY 04/24/15 08/27/16 07/26/16 History ISOSORBIDE MONOnitrate [Imdur ER] 30 mg PO QAC 04/24/15 08/27/16 07/26/16 History Albuterol Sulfate [Proair 90 mcg IH QID PRN 12/16/15 08/27/16 07/26/16 History Respiclick] Atorvastatin Calcium [Lipitor] 80 mg PO QHS 12/16/15 08/27/16 07/26/16 History Docusate Sodium [Colace CAP] 100 mg PO BID PRN 12/16/15 08/27/16 07/26/16 History Ergocalciferol (Vitamin D2) 50,000 unit PO QWEEK 12/16/15 08/27/16 07/26/16 History [Vitamin D2] Omeprazole 40 mg PO BID 12/16/15 08/27/16 07/26/16 History Losartan [Cozaar] 50 mg PO QDAY #30 12/17/15 08/27/16 07/26/16 Rx hydrALAZINE [Apresoline TAB] 25 mg PO TID #90 tablet 12/17/15 08/27/16 07/26/16 Rx Prasugrel [Effient] 10 mg PO QDAY #30 tablet 12/20/15 08/27/16 07/26/16 Rx Sertraline [Zoloft] 10 mg PO QDAY 08/27/16 08/27/16 07/26/16 History Tamsulosin [Flomax] 0.4 mg PO DAILY 08/27/16 08/27/16 07/26/16 History amLODIPine 10 mg PO DAILY 08/27/16 08/27/16 07/26/16 History cloNIDine [Clonidine] 1 each TRANSDERMA QWEEK 08/27/16 08/27/16 07/25/16 History Active Meds: Active Medications Albuterol (Proventil) 2.5 mg IH Q4HRT PRN PRN Reason: Shortness Of Breath Amlodipine Besylate (Amlodipine) 10 mg PO DAILY [facility] Atenolol (Tenormin) 100 mg PO QDAY [facility] Atorvastatin Calcium (Lipitor) 80 mg PO QHS [facility] Clonidine HCl (Catapres-Tts Patch) 0.3 mg TD Tu [facility] Docusate Sodium (Colace) 100 mg PO BID PRN PRN Reason: Constipation Guaifenesin (Guaifenesin Dm Syrup) 10 ml PO Q6HR PRN PRN Reason: Cough Last Admin: 01/30/19 06:26 Dose: 10 ml Documented by: Hydralazine HCl (Apresoline) 25 mg PO TID [facility] Cefepime HCl (Cefepime/Ns 1 Gm/100 Ml) 1 gm in 100 mls @ 200 mls/hr IV Q24H [facility]; Protocol Last Admin: 01/30/19 05:15 Dose: 200 mls/hr Documented by: Sodium Chloride (Nacl 0.9%) 100 mls @ 999 mls/hr IV LUIS PRN PRN Reason: Hypotension Sodium Chloride (Nacl 0.9%) 100 mls @ 999 mls/hr IV LUIS PRN PRN Reason: Hypotension Insulin Human Lispro (Humalog) 0 unit SUB-Q ACHS [facility]; Protocol Isosorbide Mononitrate (Imdur) 30 mg PO QAC [facility] Losartan Potassium (Cozaar) 50 mg PO QDAY [facility] Miscellaneous Medication (Ergocalciferol (Vitamin D2) [Vitamin D2]) 50,000 unit PO QWEEK [facility] Ondansetron HCl (Zofran) 4 mg IV Q6H PRN PRN Reason: Nausea And Vomiting Last Admin: 01/30/19 08:48 Dose: 4 mg Documented by: Prasugrel (Effient) 10 mg PO QDAY [facility] Sertraline HCl (Zoloft) 10 mg PO QDAY [facility] Tamsulosin HCl (Flomax) 0.4 mg PO DAILY [facility] Review of Systems Constitutional: no weight loss, no weight gain, no fever, no chills, no sweats Ears, nose, mouth and throat: no ear pain, no nose pain, no sinus pressure, no sinus pain Cardiovascular: chest pain, shortness of breath, dyspnea on exertion, no orthopnea, no palpitations, no rapid/irregular heart beat, no edema, no syncope, no lightheadedness Respiratory: cough, shortness of breath, dyspnea on exertion, no cough with sputum, no congestion, no wheezing, no pain on inspiration Gastrointestinal: no abdominal pain, no nausea, no vomiting, no diarrhea, no constipation, no change in bowel habits Genitourinary Male: no dysuria, no hematuria, no flank pain, no discharge, no urinary frequency, no urinary hesitancy Musculoskeletal: no neck stiffness, no neck pain Integumentary: no rash, no pruritis, no redness, no sores, no wounds Neurological: no head injury, no paralysis, no weakness, no parathesias, no numbness, no tingling, no seizures, no syncope Psychiatric: no anxiety Endocrine: no cold intolerance, no heat intolerance Hematologic/Lymphatic: no easy bruising, no easy bleeding Allergic/Immunologic: no urticaria, no wheezing Physical Examination Vital Signs Temp Pulse Resp BP Pulse Ox 98.5 F 102 H 18 201/97 97 01/30/19 01:32 01/30/19 01:32 01/30/19 01:32 01/30/19 01:32 01/30/19 01:32 General appearance: no acute distress HEENT: Positive: PERRL, Normocephaly, Mucus Membranes Moist Neck: Positive: neck supple, trachea midline Cardiac: Positive: Reg Rate and Rhythm, S1/S2, Systolic Murmur Lungs: Positive: Decreased Breath Sounds, Rhonchi, Oxygen Neuro: Positive: Grossly Intact Abdomen: Negative: Tender Skin: Negative: Rash Musculoskeletal: No Pain Extremities: Absent: edema Results 01/30/19 02:41 01/30/19 02:41 Lipids 01/30/19 Range/Units 02:41 Triglycerides 79 (2-149) mg/dL Cholesterol 167 (50-199) mg/dL HDL Cholesterol 40 (40-59) mg/dL Cholesterol/HDL Ratio 4.17 % CBC 01/30/19 Range/Units 02:41 WBC 8.8 (4.5-11.0) K/mm3 RBC 3.22 L (3.65-5.03) M/mm3 Hgb 10.0 L (11.8-15.2) gm/dl Hct 29.6 L (35.5-45.6) % Plt Count 161 (140-440) K/mm3 Lymph # 0.5 L (1.2-5.4) K/mm3 Dare # 0.4 (0.0-0.8) K/mm3 Eos # 0.1 (0.0-0.4) K/mm3 Baso # 0.0 (0.0-0.1) K/mm3 Comprehensive Metabolic Panel 01/30/19 Range/Units 02:41 Sodium 141 (137-145) mmol/L Potassium 4.9 (3.6-5.0) mmol/L Chloride 99.6 (98-107) mmol/L Carbon Dioxide 20 L (22-30) mmol/L BUN 67 H (9-20) mg/dL Creatinine 13.9 H (0.8-1.5) mg/dL Glucose 186 H (75-100) mg/dL Calcium 9.6 (8.4-10.2) mg/dL - Imaging and Cardiology Echo: report reviewed (10/2013: mild MR, trace TR, mild to moderate LVH, EF 45- 50%, pseudonormalization) Cardiac cath: report reviewed (12/2015 with PCI of prox RCA with ANGELINE, left main patent, LAD mid 30-40%, diagonal 1 prox 40-50%, ramus mid 50-60%, OM1 50-60%. ) EKG: report reviewed, image reviewed EKG interpretations - Telemetry EKG Rhythm: Sinus Rhythm - EKG Sinus rhythms and dysrhythmias: sinus rhythm Repolarization changes or abnormalities: repolarization abn secondary to ventricular hypertrophy Assessment and Plan Optimize anti-hypertensive regimen. Obtain echo. Will plan for lexiscan MPI stress test in AM. NPO after MN. The patient has been seen in conjunction with Dr. Rahman who agrees with the assessment and plan of care. - Patient Problems (1) Chest pain Current Visit: Yes Status: Acute (2) NSTEMI (non-ST elevated myocardial infarction) Current Visit: Yes Status: Acute Plan to address problem: suspect type II (3) Pneumonia Current Visit: Yes Status: Acute Qualifiers: Pneumonia type: due to unspecified organism Laterality: bilateral Lung location: lower lobe of lung Qualified Code(s): J18.9 - Pneumonia, unspecified organism (4) CAD (coronary artery disease) Current Visit: Yes Status: Chronic (5) Stented coronary artery Current Visit: Yes Status: Chronic (6) ESRD (end stage renal disease) on dialysis Current Visit: Yes Status: Chronic (7) Hepatitis C Current Visit: Yes Status: Chronic (8) Hypertension Current Visit: Yes Status: Chronic (9) Type 2 diabetes mellitus Current Visit: Yes Status: Chronic
[2019-01-30 16:07] LABS: Creatine Kinase MB 9.9 ng/mL (0.0-4.0)
[2019-01-30] MEDS: INSULIN LISPRO 100 UNIT/ML SUB-Q SCH ×2 (16:35→21:34)
[2019-01-30] MEDS: amLODIPine 10 MG TAB PO SCH (17:07)
[2019-01-30] MEDS: TAMSULOSIN 0.4 MG CAP PO SCH (17:08)
[2019-01-30] MEDS: SERTRALINE 25 MG TAB PO SCH (17:09)
[2019-01-30] MEDS: PRASUGREL 10 MG TAB PO SCH (17:10)
[2019-01-30] MEDS: atenoloL 50 MG TAB PO SCH (17:55)
[2019-01-30] MEDS: hydrALAZINE 25 MG TAB PO SCH (21:34)
[2019-01-31 04:34] LABS: Basophils % (Auto) 0.4 % (0.0-1.8); Eosinophils % (Auto) 0.3 % (0.0-4.3); Hematocrit 24.9 % (35.5-45.6); Hemoglobin 8.6 gm/dl (11.8-15.2); Lymphocytes # (Auto) 0.5 K/mm3 (1.2-5.4); Lymphocytes % (Auto) 7.5 % (13.4-35.0); Mean Corpuscular HGB Conc 34 % (32-34); Mean Corpuscular Volume 92 fl (84-94); Monocytes # (Auto) 0.6 K/mm3 (0.0-0.8); Monocytes % (Auto) 8.4 % (0.0-7.3); Platelet Count 132 K/mm3 (140-440); Red Blood Count 2.73 M/mm3 (3.65-5.03); Red Cell Distribution Width 15.9 % (13.2-15.2)
[2019-01-31 05:01] LABS: Calcium 9.1 mg/dL (8.4-10.2)
[2019-01-31] MEDS: hydrALAZINE 25 MG TAB PO SCH ×3 (05:27→22:05)
[2019-01-31] MEDS: CEFEPIME/NS 1 GM/100 ML 1 GM/100 ML BAG IV SCH (05:28)
[2019-01-31] MEDS: INSULIN LISPRO 100 UNIT/ML SUB-Q SCH ×4 (07:30→22:06)
[2019-01-31] MEDS ORDERED: REGADENOSON 0.4 MG/5 ML INJ IV ONE ×2 (08:15→09:11)
[2019-01-31] MEDS: SERTRALINE 25 MG TAB PO SCH (10:00)
[2019-01-31] MEDS: amLODIPine 10 MG TAB PO SCH (10:00)
[2019-01-31] MEDS: LOSARTAN 50 MG TAB PO SCH (10:00)
[2019-01-31] MEDS: atenoloL 50 MG TAB PO SCH (10:00)
[2019-01-31] MEDS: PRASUGREL 10 MG TAB PO SCH (10:00)
[2019-01-31] MEDS: TAMSULOSIN 0.4 MG CAP PO SCH (10:00)
--- NOTE | 2019-01-31 10:54 | Progress Note ---
Assessment and Plan Await echo. Proceed with lexiscan MPI stress test. The patient has been seen in conjunction with Dr. Rahman who agrees with the assessment and plan of care. - Patient Problems (1) Chest pain Current Visit: Yes Status: Acute (2) NSTEMI (non-ST elevated myocardial infarction) Current Visit: Yes Status: Acute (3) Pneumonia Current Visit: Yes Status: Acute Qualifiers: Pneumonia type: due to unspecified organism Laterality: bilateral Lung location: lower lobe of lung Qualified Code(s): J18.9 - Pneumonia, unspecified organism (4) CAD (coronary artery disease) Current Visit: Yes Status: Chronic (5) Stented coronary artery Current Visit: Yes Status: Chronic (6) ESRD (end stage renal disease) on dialysis Current Visit: Yes Status: Chronic (7) Hepatitis C Current Visit: Yes Status: Chronic (8) Hypertension Current Visit: Yes Status: Chronic (9) Type 2 diabetes mellitus Current Visit: Yes Status: Chronic Subjective Date of service: 01/31/19 Principal diagnosis: cp; htn Interval history: pt for stress test Objective Last Vital Signs Temp 98.0 F 01/31/19 08:05 Pulse 89 01/31/19 08:05 Resp 18 01/31/19 08:05 BP 125/56 01/31/19 08:05 Pulse Ox 100 01/31/19 08:05 - Physical Examination General: No Apparent Distress HEENT: Positive: PERRL, Normocephaly, Mucus Membranes Moist Neck: Positive: neck supple, trachea midline Cardiac: Positive: Reg Rate and Rhythm, S1/S2 Lungs: Positive: Decreased Breath Sounds Neuro: Positive: Grossly Intact Abdomen: Negative: Tender Skin: Negative: Rash Musculoskeletal: No Pain Extremities: Absent: edema - Labs and Meds Cardiac Enzymes 01/30/19 Range/Units 15:09 CK-MB (CK-2) 9.9 H (0.0-4.0) ng/mL CBC 01/31/19 Range/Units 03:40 WBC 6.6 (4.5-11.0) K/mm3 RBC 2.73 L (3.65-5.03) M/mm3 Hgb 8.6 L (11.8-15.2) gm/dl Hct 24.9 L (35.5-45.6) % Plt Count 132 L (140-440) K/mm3 Lymph # 0.5 L (1.2-5.4) K/mm3 Phillips # 0.6 (0.0-0.8) K/mm3 Eos # 0.0 (0.0-0.4) K/mm3 Baso # 0.0 (0.0-0.1) K/mm3 Comprehensive Metabolic Panel 01/31/19 Range/Units 03:40 Sodium 141 (137-145) mmol/L Potassium 4.3 (3.6-5.0) mmol/L Chloride 97.7 L (98-107) mmol/L Carbon Dioxide 25 (22-30) mmol/L BUN 37 H (9-20) mg/dL Creatinine 10.0 H (0.8-1.5) mg/dL Glucose 136 H (75-100) mg/dL Calcium 9.1 (8.4-10.2) mg/dL - Imaging and Cardiology EKG: report reviewed, image reviewed Echo: report reviewed (10/2013: mild MR, trace TR, mild to moderate LVH, EF 45- 50%, pseudonormalization) Cardiac cath: report reviewed (12/2015 with PCI of prox RCA with ANGELINE, left main patent, LAD mid 30-40%, diagonal 1 prox 40-50%, ramus mid 50-60%, OM1 50-60%. ) - EKG Sinus rhythms and dysrhythmias: sinus rhythm Repolarization changes or abnormalities: repolarization abn secondary to ventricular hypertrophy
[2019-01-31] MEDS ORDERED: VANCOMYCIN/NS 1 GM/250 ML 1 GM/250 ML BAG IV ONE (12:00)
--- NOTE | 2019-01-31 12:14 | Progress Note ---
Assessment and Plan This is a 63 year old man with ESRD who presents with concerns for chest pain and pneumonia. # ESRD: will continue HD // or prn based on labs/volume. Due for HD tomorrow - if patient is stable for discharge today, will run HD today for 2 hours as his next outpatient HD session would not be until 02/03 due to the Thanksgiving kirti underwoode - avoid nephrotoxins - renal diet - renally dose medications - access intact - daily renal labs # HTN/Volume: BP at goal now, continue current regimen. UF as tolerated with HD # Anemia of CKD: hemoglobin at goal, ESAs as indicated # Secondary Hyperparathyroidism: continue home binders, will provide vitamin D analog if indicated # Tropinemia: possibly stress induced, follow up with cardiology recommendations, appreciate input. Awaiting results of stress test # Pneumonia: antibiotics per primary Thank you for this consult; we will continue to follow. Please feel free to give me a call at for any questions or concerns. Subjective Date of service: 01/31/19 Principal diagnosis: cp; htn Interval history: Patient had stress test this AM; doing ok this AM, does feel chest pressure still and feels tired. But otherwise no questions or concerns. Tolerated HD well yesterday, no cramping, dizziness noted. Objective - Exam Narrative Exam: General appearance: well-developed, well-nourished, appears stated age EENT: PERRL, mucous membranes moist Neck: Present: neck supple, trachea midline Respiratory: Clear to Auscultation Heart: regular, S1S2 Gastrointestinal: Present: normoactive bowel sounds. Absent: tenderness, distended Integumentary: no rash, warm and dry Neurologic: no focal deficit, no asterixis Musculoskeletal: Absent: deformities Psychiatric: mood/affect appropriate - Vital Signs Vital signs: Vital Signs - 12hr 01/31/19 01/31/19 01/31/19 01:49 04:15 05:27 Temperature 99.5 F Pulse Rate 89 90 Pulse Rate [ 95 H Apical] Respiratory 20 18 Rate Blood Pressure 135/56 135/56 O2 Sat by Pulse 96 82 L Oximetry 01/31/19 01/31/19 01/31/19 08:00 08:05 09:18 Temperature 98.0 F Pulse Rate 96 H 89 Pulse Rate [ Apical] Respiratory 18 Rate Blood Pressure 125/56 139/67 O2 Sat by Pulse 100 Oximetry 01/31/19 01/31/19 01/31/19 09:56 09:57 09:58 Temperature Pulse Rate Pulse Rate [ Apical] Respiratory Rate Blood Pressure 119/58 128/60 135/63 O2 Sat by Pulse Oximetry - Lab 01/31/19 03:40 01/31/19 03:40 Most recent lab results Calcium 9.1 mg/dL (8.4-10.2) 01/31/19 03:40 Medications & Allergies - Medications Allergies/Adverse Reactions: Allergies metformin Allergy (Intermediate, Verified 08/27/16 12:21) Diarrhea lisinopril Allergy (Verified 08/27/16 12:21) Unknown Home Medications: Home Medications Medication Instructions Recorded Confirmed Last Taken Type Aspirin [Aspirin BABY CHEW TAB] 81 mg PO ONCE 08/29/13 01/30/19 07/26/16 History Bisoprolol Fumarate [Zebeta] 10 mg PO DAILY 04/24/15 01/30/19 07/26/16 History ISOSORBIDE MONOnitrate [Imdur ER] 30 mg PO QAC 04/24/15 01/30/19 07/26/16 History Albuterol Sulfate [Proair 90 mcg IH QID PRN 12/16/15 01/30/19 07/26/16 History Respiclick] Atorvastatin Calcium [Lipitor] 80 mg PO QHS 12/16/15 01/30/19 07/26/16 History Docusate Sodium [Colace CAP] 100 mg PO BID PRN 12/16/15 01/30/19 07/26/16 History Ergocalciferol (Vitamin D2) 50,000 unit PO QWEEK 12/16/15 01/30/19 07/26/16 History [Vitamin D2] Omeprazole 40 mg PO BID 12/16/15 01/30/19 07/26/16 History Losartan [Cozaar] 50 mg PO QDAY #30 12/17/15 01/30/19 07/26/16 Rx hydrALAZINE [Apresoline TAB] 25 mg PO TID #90 tablet 12/17/15 01/30/19 07/26/16 Rx Prasugrel [Effient] 10 mg PO QDAY #30 tablet 12/20/15 01/30/19 07/26/16 Rx Sertraline [Zoloft] 10 mg PO QDAY 08/27/16 01/30/19 07/26/16 History Tamsulosin [Flomax] 0.4 mg PO DAILY 08/27/16 01/30/19 07/26/16 History amLODIPine 10 mg PO DAILY 08/27/16 01/30/19 07/26/16 History cloNIDine [Clonidine] 1 each TRANSDERMA QWEEK 08/27/16 01/30/19 07/25/16 History Active Medications: Generic Name Dose Route Start Last Admin Trade Name Freq PRN Reason Stop Dose Admin Albuterol 2.5 mg 01/30/19 11:53 Proventil IH Q4HRT PRN Shortness Of Breath Amlodipine Besylate 10 mg 01/30/19 10:00 01/30/19 17:07 Amlodipine PO 10 mg DAILY RAMBO Administration Atenolol 100 mg 01/30/19 15:00 01/30/19 17:55 Tenormin PO 100 mg QDAY RAMBO Administration Atorvastatin Calcium 80 mg 01/30/19 22:00 01/30/19 21:34 Lipitor PO 80 mg QHS RAMBO Administration Clonidine HCl 0.3 mg 01/30/19 12:00 01/30/19 17:56 Catapres-Tts Patch TD 0.3 mg Tu RAMBO Administration Docusate Sodium 100 mg 01/30/19 12:00 Colace PO BID PRN Constipation Ergocalciferol 50,000 unit 02/01/19 17:24 Vitamin D2 PO Th [facility] Guaifenesin 10 ml 01/30/19 06:15 01/30/19 06:26 Guaifenesin Dm Syrup PO 10 ml Q6HR PRN Administration Cough Hydralazine HCl 50 mg 01/30/19 22:00 01/31/19 05:27 Apresoline PO 50 mg Q8HR RAMBO Administration Cefepime HCl 1 gm in 100 mls @ 200 mls/hr 01/30/19 05:00 01/31/19 05:28 Cefepime/Ns 1 Gm/100 Ml IV 200 mls/hr Q24H RAMBO Administration Protocol Sodium Chloride 100 mls @ 999 mls/hr 01/30/19 07:33 Nacl 0.9% IV LUIS PRN Hypotension Sodium Chloride 100 mls @ 999 mls/hr 01/30/19 11:30 Nacl 0.9% IV LUIS PRN Hypotension Vancomycin HCl 1 gm in 250 mls @ 167.007 mls/hr 01/31/19 12:00 Vancomycin/Ns 1 Gm/250 Ml IV 01/31/19 13:29 ONCE ONE Insulin Human Lispro 0 unit 01/30/19 16:30 01/31/19 07:30 Humalog SUB-Q Not Given ACHS RAMBO Protocol Isosorbide Mononitrate 30 mg 01/30/19 11:30 01/31/19 07:30 Imdur PO Not Given QAC [facility] Losartan Potassium 100 mg 01/31/19 10:00 Cozaar PO QDAY RAMBO Ondansetron HCl 4 mg 01/30/19 08:24 01/30/19 08:48 Zofran IV 4 mg Q6H PRN Administration Nausea And Vomiting Prasugrel 10 mg 01/30/19 11:00 01/30/19 17:10 Effient PO 10 mg QDAY RAMBO Administration Sertraline HCl 10 mg 01/30/19 10:00 01/30/19 17:09 Zoloft PO 10 mg QDAY RAMBO Administration Tamsulosin HCl 0.4 mg 01/30/19 10:00 01/30/19 17:08 Flomax PO 0.4 mg DAILY RAMBO Administration
--- NOTE | 2019-01-31 13:04 | Treadmill Report ---
SINGLE ISOTOPE DUAL STUDY MYOCARDIAL PERFUSION SCAN REPORT AGE: 63. SEX: Male. REFERRING PHYSICIAN: Dr. Darling Blair, hospitalist. DESCRIPTION OF PROCEDURE: The patient received 10 mCi of technetium 99m Myoview intravenously under resting conditions. Resting myocardial perfusion scan was done. Subsequently, the patient underwent Lexiscan stress test as per the protocol. During Lexiscan stress, the patient received 28 mCi of technetium 99m Myoview intravenously. After 30-60 minutes, post stress images were done. Computerized reconstruction images was performed for analysis. CONCLUSIONS: 1. The post-stress images revealed [id number] transient ischemic dilatation of the left ventricle with TID ratio 1.18, which is of uncertain significance. 2. No perfusion abnormality was seen in the resting as well as stress images. 3. Mildly dilated left ventricle with moderate to severe global left ventricular systolic dysfunction with LVEF of 30%. 4. The study is suggestive of dilated nonischemic cardiomyopathy. JOB# [id number] [facility]
--- NOTE | 2019-01-31 13:16 | Event Note ---
Date: 01/31/19 S/p lexiscan MPI stress test this AM which was negative for ischemia, EF 30%, findings c/w dilated NICMP. Await echo. Pending echo shows no significant abnormalities, pt may discharge from cardiology standpoint. Recommend pt follow up in our office with Dr. Tadeo within 1-2 weeks of discharge ([phone]). Laurel NORIEGA NP / DR. VERA
[2019-01-31] MEDS ORDERED: HYDROcodone/ACETAMINOPHEN 5-325 MG TAB PO ONE (14:33)
--- NOTE | 2019-01-31 15:58 | Discharge Summary ---
Providers - Providers Date of Admission: 01/30/19 07:03 Date of discharge: 02/01/19 Attending physician: TONY BA 01/30/19 05:38 Consult to Physician [CONS] Stat Comment: Consulting Provider: ARCHIE HOLLOWAY Physician Instructions: Reason For Exam: ESRD on HD, received IV contrast 01/30/19 14:41 Consult to Physician [CONS] Routine Comment: Consulting Provider: RENÉ MCCOY Physician Instructions: Reason For Exam: chest pain/+ve troponin/CAD s/p PCI Hospitalization Reason for admission: Chest pain/Shortness of breath Condition: Stable Pertinent studies: Chest x-ray CT chest Echocardiogram Stress test [id number] transient ischemic dilation of the left ventricle and no perfusion abnormality he is 30% moderate to severe global left ventricular systolic dysfunction; Hospital course: 63-year-old male patient with significant past medical history of end-stage renal disease on hemodialysis ,coronary artery disease status post PCI to proximal RCA in 2016, congestive heart failure ,hypertension ,hepatitis C, dyslipidemia ,diabetes mellitus, presented to the emergency room with Right-sided chest pain shortness of breath and nausea since last night He was admitted evaluation by plate fitter underwent stress test which was negative Patient's medications were optimized today patient is comfortable no new complaints vital signs stable Physical examination is unremarkable Cleared by cardiology for discharge and follow-up in the office Stable at discharge Discharge diagnosis discharge diagnosis: --Chest pain/non-ST elevation [place] Probably nonspecific in the setting of end-stage renal disease However patient has multiple risk factors Serial cardiac enzymes, continue current cardiac medications Cardiology consult --Community-acquired pneumonia; on IV antibiotics Follow cultures and supportive care --Acute systolic congestive heart failure; ejection fraction 35 to 40% Partly secondary to fluid overload due to end-stage renal disease Continue current management, patient is on beta-blockers, allergic to YINKA inhibitors On hydralazine and Imdur --History of coronary artery disease status post PCI[2016 Continue current cardiac medications Cardiology consult. --End-stage renal disease on hemodialysis; Nephrology following, HD per schedule --Hypertension; uncontrolled Resume home antihypertensives and when necessary medications --Dyslipidemia; statin --DVT prophylaxis; heparin renal dose --Ongoing tobacco use; smoking Cessation Monitor closely and adjust management as needed Stable at Discharge Disposition: DC-01 TO HOME OR SELFCARE Time spent for discharge: 32 min Core Measure Documentation - Palliative Care Palliative Care/ Comfort Measures: Not Applicable - Core Measures Any of the following diagnoses?: none Exam - Constitutional Vitals: Temp Pulse Resp BP Pulse Ox 98.0 F 89 20 135/63 98 01/31/19 08:05 01/31/19 08:05 01/31/19 14:02 01/31/19 09:58 01/31/19 13:00 General appearance: Present: no acute distress, well-nourished - EENT Eyes: Present: PERRL, EOM intact - Neck Neck: Present: supple, normal ROM - Respiratory Respiratory effort: normal Respiratory: bilateral: diminished, negative: rales, rhonchi, wheezing - Cardiovascular Rhythm: regular Heart Sounds: Present: S1 & S2 - Extremities Extremities: no ischemia, No edema - Abdominal General gastrointestinal: Present: soft, non-tender, non-distended, normal bowel sounds - Integumentary Integumentary: Present: clear, warm - Musculoskeletal Musculoskeletal: strength equal bilaterally - Psychiatric Psychiatric: appropriate mood/affect, cooperative - Neurologic Neurologic: moves all extremities Plan Activity: no restrictions Diet: renal Special Instructions: smoking cessation Additional Instructions: F/U renal and HD per schedule Follow up with: PRIMARY CARE, [Referring] - 3-5 Days TRUNG VALENCIA MD [Staff Physician] - 7 Days RENÉ MCCOY MD [Staff Physician] - 7 Days Prescriptions: hydrALAZINE [Apresoline TAB] 50 mg PO Q8HR #90 tablet
--- NOTE | 2019-01-31 17:33 | Progress Note ---
Assessment and Plan Assessment and plan: --Chest pain/non-ST elevation [place] Probably nonspecific in the setting of end-stage renal disease However patient has multiple risk factors Serial cardiac enzymes, continue current cardiac medications Cardiology consult --Community-acquired pneumonia; on IV antibiotics Follow cultures and supportive care --Acute systolic congestive heart failure; ejection fraction 35 to 40% Partly secondary to fluid overload due to end-stage renal disease Continue current management, patient is on beta-blockers, allergic to YINKA inhibitors On hydralazine and Imdur --History of coronary artery disease status post PCI[2016 Continue current cardiac medications Cardiology consult. --End-stage renal disease on hemodialysis; Nephrology following, HD per schedule --Hypertension; uncontrolled Resume home antihypertensives and when necessary medications --Dyslipidemia; statin --DVT prophylaxis; heparin renal dose Monitor closely and adjust management as needed Plan of care is reviewed with the patient and his nurse Follow consults and recommendations Hospitalist Physical - Constitutional Vitals: Temp Pulse Resp BP Pulse Ox 97.9 F 79 18 172/84 88 01/31/19 16:21 01/31/19 16:21 01/31/19 16:21 01/31/19 16:21 01/31/19 16:21 General appearance: Present: no acute distress, well-nourished Results - Labs CBC & Chem 7: 01/31/19 03:40 01/31/19 03:40 Labs: Laboratory Last Values WBC 6.6 K/mm3 (4.5-11.0) 01/31/19 03:40 RBC 2.73 M/mm3 (3.65-5.03) L 01/31/19 03:40 Hgb 8.6 gm/dl (11.8-15.2) L 01/31/19 03:40 Hct 24.9 % (35.5-45.6) L 01/31/19 03:40 MCV 92 fl (84-94) 01/31/19 03:40 MCH 31 pg (28-32) 01/31/19 03:40 MCHC 34 % (32-34) 01/31/19 03:40 RDW 15.9 % (13.2-15.2) H 01/31/19 03:40 Plt Count 132 K/mm3 (140-440) L 01/31/19 03:40 Lymph % (Auto) 7.5 % (13.4-35.0) L 01/31/19 03:40 Barber % (Auto) 8.4 % (0.0-7.3) H 01/31/19 03:40 Eos % (Auto) 0.3 % (0.0-4.3) 01/31/19 03:40 Baso % (Auto) 0.4 % (0.0-1.8) 01/31/19 03:40 Lymph # 0.5 K/mm3 (1.2-5.4) L 01/31/19 03:40 Barber # 0.6 K/mm3 (0.0-0.8) 01/31/19 03:40 Eos # 0.0 K/mm3 (0.0-0.4) 01/31/19 03:40 Baso # 0.0 K/mm3 (0.0-0.1) 01/31/19 03:40 Seg Neutrophils % 83.4 % (40.0-70.0) H 01/31/19 03:40 Seg Neutrophils # 5.5 K/mm3 (1.8-7.7) 01/31/19 03:40 Sodium 141 mmol/L (137-145) 01/31/19 03:40 Potassium 4.3 mmol/L (3.6-5.0) 01/31/19 03:40 Chloride 97.7 mmol/L (98-107) L 01/31/19 03:40 Carbon Dioxide 25 mmol/L (22-30) 01/31/19 03:40 Anion Gap 23 mmol/L 01/31/19 03:40 BUN 37 mg/dL (9-20) H 01/31/19 03:40 Creatinine 10.0 mg/dL (0.8-1.5) H 01/31/19 03:40 Estimated GFR 6 ml/min 01/31/19 03:40 BUN/Creatinine Ratio 4 % 01/31/19 03:40 Glucose 136 mg/dL (75-100) H 01/31/19 03:40 POC Glucose 162 (70-105) H 01/31/19 08:10 Calcium 9.1 mg/dL (8.4-10.2) 01/31/19 03:40 Total Creatine Kinase 317 units/L (55-170) H 01/30/19 15:09 CK-MB (CK-2) 9.9 ng/mL (0.0-4.0) H 01/30/19 15:09 CK-MB (CK-2) Rel Index 3.1 (0-4) 01/30/19 15:09 Troponin T 0.317 ng/mL (0.00-0.029) H* D 01/30/19 15:09 Triglycerides 79 mg/dL (2-149) 01/30/19 02:41 Cholesterol 167 mg/dL (50-199) 01/30/19 02:41 LDL Cholesterol Direct 117 mg/dL (50-130) 01/30/19 02:41 HDL Cholesterol 40 mg/dL (40-59) 01/30/19 02:41 Cholesterol/HDL Ratio 4.17 % 01/30/19 02:41 Random Vancomycin 12.6 ug/mL (0-40.0) 01/31/19 07:26 Hepatitis A IgM Ab Non-reactive (NonReactive) 01/30/19 08:52 Hep Bs Antigen Non-reactive (Negative) 01/30/19 08:52 Hep B Core IgM Ab Non-reactive (NonReactive) 01/30/19 08:52 Hepatitis C Antibody Reactive (NonReactive) A 01/30/19 08:52 Active Medications - Current Medications Current Medications: Generic Name Dose Route Start Last Admin Trade Name Freq PRN Reason Stop Dose Admin Albuterol 2.5 mg 01/30/19 11:53 Proventil IH Q4HRT PRN Shortness Of Breath Amlodipine Besylate 10 mg 01/30/19 10:00 01/31/19 10:00 Amlodipine PO Not Given DAILY [facility] Atenolol 100 mg 01/30/19 15:00 01/31/19 10:00 Tenormin PO Not Given QDAY RAMBO Atorvastatin Calcium 80 mg 01/30/19 22:00 01/30/19 21:34 Lipitor PO 80 mg QHS RAMBO Administration Clonidine HCl 0.3 mg 01/30/19 12:00 01/30/19 17:56 Catapres-Tts Patch TD 0.3 mg Tu RAMBO Administration Docusate Sodium 100 mg 01/30/19 12:00 Colace PO BID PRN Constipation Ergocalciferol 50,000 unit 02/01/19 17:24 Vitamin D2 PO Th [facility] [place] Guaifenesin 10 ml 01/30/19 06:15 01/30/19 06:26 Guaifenesin Dm Syrup PO 10 ml Q6HR PRN Administration Cough Hydralazine HCl 50 mg 01/30/19 22:00 01/31/19 14:00 Apresoline PO Not Given Q8HR RAMBO Cefepime HCl 1 gm in 100 mls @ 200 mls/hr 01/30/19 05:00 01/31/19 05:28 Cefepime/Ns 1 Gm/100 Ml IV 200 mls/hr Q24H RAMBO Administration Protocol Sodium Chloride 100 mls @ 999 mls/hr 01/30/19 07:33 Nacl 0.9% IV LUIS PRN Hypotension Sodium Chloride 100 mls @ 999 mls/hr 01/30/19 11:30 Nacl 0.9% IV LUIS PRN Hypotension Insulin Human Lispro 0 unit 01/30/19 16:30 01/31/19 17:00 Humalog SUB-Q Not Given ACHS [facility] [place] Protocol Isosorbide Mononitrate 30 mg 01/30/19 11:30 01/31/19 16:30 Imdur PO Not Given QAC [facility] [place] Losartan Potassium 100 mg 01/31/19 10:00 01/31/19 10:00 Cozaar PO Not Given QDAY [facility] Ondansetron HCl 4 mg 01/30/19 08:24 01/30/19 08:48 Zofran IV 4 mg Q6H PRN Administration Nausea And Vomiting Prasugrel 10 mg 01/30/19 11:00 01/31/19 10:00 Effient PO Not Given QDAY [facility] Sertraline HCl 10 mg 01/30/19 10:00 01/31/19 10:00 Zoloft PO Not Given QDAY RAMBO Tamsulosin HCl 0.4 mg 01/30/19 10:00 01/31/19 10:00 Flomax PO Not Given DAILY RAMBO
[2019-02-01] MEDS: CEFEPIME/NS 1 GM/100 ML 1 GM/100 ML BAG IV SCH (04:50)
[2019-02-01] MEDS: hydrALAZINE 25 MG TAB PO SCH ×2 (05:02→13:52)
[2019-02-01] MEDS: INSULIN LISPRO 100 UNIT/ML SUB-Q SCH ×2 (08:00→12:00)
[2019-02-01] MEDS: PRASUGREL 10 MG TAB PO SCH (10:00)
[2019-02-01] MEDS: LOSARTAN 50 MG TAB PO SCH (10:00)
[2019-02-01] MEDS ORDERED: SODIUM CHLORIDE*PRIMING MACHINE ONLY FOR DIALYSIS MC ONE (12:08)
[2019-02-01] MEDS: atenoloL 50 MG TAB PO SCH (13:00)
[2019-02-01] MEDS: SERTRALINE 25 MG TAB PO SCH (13:00)
[2019-02-01 13:42] VITALS: BP 173/81
[2019-02-01] MEDS: amLODIPine 10 MG TAB PO SCH (13:52)
[2019-02-01] MEDS: TAMSULOSIN 0.4 MG CAP PO SCH (13:56)
[2019-02-01] MEDS ORDERED: ERGOCALCIFEROL (VIT D2) 50,000 UNIT CAP PO SCH (17:24)
== END 2019-02-01 14:05 | disposition home or self-care (01) | DRG 280 ==
LOC: ED 01:13 → 4A 07:03
PROVIDERS: ADMIT Internal Medicine Geriatric Medicine; ATTEND Internal Medicine
PROC: 5A1D70Z Performance of Urinary Filtration, Intermittent, Less than 6 Hours Per Day (ICD-10-PCS; 2019-01-30)
PROC: 5A1D70Z Performance of Urinary Filtration, Intermittent, Less than 6 Hours Per Day (ICD-10-PCS; principal; 2019-02-01)
DX: I13.2 Hypertensive heart and chronic kidney disease with heart failure and with stage 5 chronic kidney disease, or end stage renal disease (principal); I21.A1 Myocardial infarction type 2; N18.6 End stage renal disease; J18.9 Pneumonia, unspecified organism; I50.21 Acute systolic (congestive) heart failure; N25.81 Secondary hyperparathyroidism of renal origin; I25.10 Atherosclerotic heart disease of native coronary artery without angina pectoris; E11.22 Type 2 diabetes mellitus with diabetic chronic kidney disease; K21.9 Gastro-esophageal reflux disease without esophagitis; E78.5 Hyperlipidemia, unspecified; D63.1 Anemia in chronic kidney disease; B19.20 Unspecified viral hepatitis C without hepatic coma; Z82.49 Family history of ischemic heart disease and other diseases of the circulatory system; Z79.82 Long term (current) use of aspirin; Z99.2 Dependence on renal dialysis; Z79.899 Other long term (current) drug therapy; Z95.5 Presence of coronary angioplasty implant and graft
CPT/HCPCS: 36415; 71045; 71275; 78452; 80048; 80061; 80074; 80202; 82550; 82553; 82962; 84484; 85025; 87040; 93005; 93010; 93017; 93306; 96374; 99406; G0378; A9270-GY; A9502; J0360; J0692; J2405; J2785; J3370; J7030; J7040; Q9967

== ENCOUNTER 2020-06-18 13:42 | Emergency (ER) | payer OTHER ==
--- NOTE | 2020-06-18 14:46 | Event Note ---
ED Screening Note ED Screening Note: leg swelling for a week BLE pain +exertional SOB +cough PMHx CHF, ESRD states he last went to dialysis yesterday no CP no fever no v/d This initial assessment/diagnostic orders/clinical plan/treatment(s) is/are subject to change based on patients health status, clinical progression and re-assessment by fellow clinical providers in the ED. Further treatment and workup at subsequent clinical providers discretion. Patient/guardian urged not to elope from the ED as their condition may be serious if not clinically assessed and managed. Initial orders include: labs, CXR, EKG
--- NOTE | 2020-06-18 15:38 | XRay Report ---
CHEST 2 VIEWS INDICATION / CLINICAL INFORMATION: SOB, BLE edema. COMPARISON: 09/20/2019 FINDINGS: SUPPORT DEVICES: None. HEART / MEDIASTINUM: Stable moderate cardiomegaly LUNGS / PLEURA: No significant pulmonary or pleural abnormality. No pneumothorax. ADDITIONAL FINDINGS: No significant additional findings. IMPRESSION: 1. Cardiomegaly without CHF Signer Name: Ezequiel Boone MD Signed: 06/18/2020 3:12 PM Workstation Name: [id number]
[2020-06-18 16:05] LABS: Basophils % (Auto) 0.5 % (0.0-1.8); Eosinophils # (Auto) 0.1 K/mm3 (0.0-0.4); Eosinophils % (Auto) 2.9 % (0.0-4.3); Hematocrit 38.8 % (35.5-45.6); Hemoglobin 12.7 gm/dl (11.8-15.2); Lymphocytes # (Auto) 0.6 K/mm3 (1.2-5.4); Lymphocytes % (Auto) 13.5 % (13.4-35.0); Mean Corpuscular HGB Conc 33 % (32-34); Mean Corpuscular Volume 94 fl (84-94); Monocytes # (Auto) 0.4 K/mm3 (0.0-0.8); Monocytes % (Auto) 9.1 % (0.0-7.3); Platelet Count 132 K/mm3 (140-440); Red Blood Count 4.13 M/mm3 (3.65-5.03); Red Cell Distribution Width 18.2 % (13.2-15.2)
--- NOTE | 2020-06-18 16:12 | Vascular Lab Report ---
DUPLEX DOPPLER LOWER EXTREMITY ARTERIAL, BILATERAL INDICATION: BLE edema and pain, poor pulses. TECHNIQUE: Arterial duplex examination of both lower extremities performed using B-mode, color flow and spectral Doppler assessment. FINDINGS: RIGHT: Common Femoral Artery: PSV 129 cm/sec. Biphasic waveform. Proximal SFA: PSV 133 cm/sec. Biphasic waveform. Mid SFA: PSV 34 cm/sec. Monophasic waveform. Distal SFA: PSV 21 cm/sec. Monophasic waveform. Popliteal artery: PSV 41 cm/sec. Monophasic waveform. Posterior tibial artery: PSV 37 cm/sec. Monophasic waveform. Dorsalis Pedis Artery: PSV 36 cm/sec. Monophasic waveform. LEFT: Common Femoral Artery: PSV 143 cm/sec. Biphasic waveform. Proximal SFA: PSV 217 cm/sec. Monophasic waveform. Mid SFA: PSV 92 cm/sec. Monophasic waveform. Distal SFA: PSV 68 cm/sec. Monophasic waveform. Popliteal artery: PSV 79 cm/sec. Monophasic waveform. Posterior tibial artery: PSV 65 cm/sec. Monophasic waveform. Dorsalis Pedis Artery: PSV 58 cm/sec. Monophasic waveform. Moderate to severe diffuse atherosclerotic plaques are noted bilaterally. IMPRESSION: Lower extremity arterial structures are patent although moderate to severe atherosclerotic plaques ar e identified with monophasic blood flow bilaterally distal to the mid superficial femoral artery. Greater than 50% stenosis is suspected in the proximal left superficial femoral artery. Doppler Waveform: * Triphasic is normal. * Biphasic is abnormal if clear transition from triphasic signal along vascular tree. * Monophasic is abnormal. Signer Name: Oumar Zaragoza Jr, MD Signed: 06/18/2020 4:03 PM Workstation Name: [id number]
[2020-06-18 16:30] LABS: Alanine Aminotransferase 9 units/L (7-56); Albumin 4.2 g/dL (3.9-5); Blood Urea Nitrogen 35 mg/dL (9-20); Calcium 9.2 mg/dL (8.4-10.2); Hemolysis Index 141
[2020-06-18 16:39] LABS: BUN/Creatinine Ratio 4
[2020-06-18 16:56] LABS: Chol/HDL Ratio 2.46 %; HDL Cholesterol 47 mg/dL (40-59); LDL Cholesterol,Direct 56 mg/dL (50-130)
--- NOTE | 2020-06-18 17:19 | Emergency Department Report ---
ED General Adult HPI - General Chief complaint: Extremity Injury, Lower Stated complaint: BILATERAL LEG PAIN PUI?: No Time Seen by Provider: 06/18/20 14:45 Source: patient Mode of arrival: Ambulatory Limitations: No Limitations - History of Present Illness Initial comments: She is a 64-year-old male that presents emergency room with complaints of bilateral lower extremity pain and swelling. Patient also states he has shortness of breath with exertion. Patient states his shortness of breath going on for 3 days. Patient dates that is worsening. Patient states the pain and swelling in his legs are worsening. Patient states he went to a foot doctor and they said that he is got calcified arteries in his legs. Patient states the pain in his legs is a 6 out of 10. Patient states his pain is better with rest and worse with exertion. Patient states that shortness of breath better with rest and worse with exertion. Patient states at times he has a dry cough. Patient denies chest pain. Patient denies exertional chest pain. Patient denies recent travel. Patient denies recent international travel. Patient denies exposure to the novel coronavirus. Patient denies sick contacts. Patient denies fever and chills. Patient denies diarrhea. Patient denies coming in contact with anybody with symptoms of the novel coronavirus. -: Sudden Severity scale (0 -10): 10 Quality: burning, stabbing Consistency: constant Improves with: rest Worsens with: movement Associated Symptoms: denies: confusion, chest pain, cough, diaphoresis, fever/c hills, headaches, loss of appetite, malaise, nausea/vomiting, rash, seizure, shortness of breath, syncope, weakness Treatments Prior to Arrival: none - Related Data Home Medications Medication Instructions Recorded Confirmed Last Taken Aspirin [Aspirin BABY CHEW TAB] 81 mg PO ONCE 08/29/13 01/30/19 07/26/16 Bisoprolol Fumarate [Zebeta] 10 mg PO DAILY 04/24/15 01/30/19 07/26/16 ISOSORBIDE MONOnitrate [Imdur ER] 30 mg PO QAC 04/24/15 01/30/19 07/26/16 Albuterol Sulfate [Proair 90 mcg IH QID PRN 12/16/15 01/30/19 07/26/16 Respiclick] Atorvastatin Calcium [Lipitor] 80 mg PO QHS 12/16/15 01/30/19 07/26/16 Docusate Sodium [Colace CAP] 100 mg PO BID PRN 12/16/15 01/30/19 07/26/16 Ergocalciferol (Vitamin D2) 50,000 unit PO QWEEK 12/16/15 01/30/19 07/26/16 [Vitamin D2] Omeprazole 40 mg PO BID 12/16/15 01/30/19 07/26/16 Sertraline [Zoloft] 10 mg PO QDAY 08/27/16 01/30/19 07/26/16 Tamsulosin [Flomax] 0.4 mg PO DAILY 08/27/16 01/30/19 07/26/16 amLODIPine 10 mg PO DAILY 08/27/16 01/30/19 07/26/16 cloNIDine [Clonidine] 1 each TRANSDERMA QWEEK 08/27/16 01/30/19 07/25/16 Previous Rx's Medication Instructions Recorded Last Taken Type Losartan [Cozaar] 50 mg PO QDAY #30 12/17/15 07/26/16 Rx hydrALAZINE [Apresoline TAB] 25 mg PO TID #90 tablet 12/17/15 07/26/16 Rx Prasugrel [Effient] 10 mg PO QDAY #30 tablet 12/20/15 07/26/16 Rx hydrALAZINE [Apresoline TAB] 50 mg PO Q8HR #90 tablet 01/31/19 Unknown Rx Aspirin 325 mg PO ONCE #30 tablet 09/20/19 Unknown Rx ISOSORBIDE MONOnitrate [Imdur ER] 30 mg PO DAILY #30 tab.er.24h 09/20/19 Unknown Rx Cetirizine HCl [Zyrtec 10mg tab] 10 mg PO DAILY PRN #10 tablet 06/18/20 Unknown Rx HYDROcodone/APAP 5-325 [Campbell 1 each PO Q4HR PRN #10 tablet 06/18/20 Unknown Rx 5/325] Allergies Allergy/AdvReac Type Severity Reaction Status Date / Time metformin Allergy Intermediate Diarrhea Verified 06/18/20 14:02 lisinopril Allergy Unknown Verified 06/18/20 14:02 ED Review of Systems ROS: Stated complaint: BILATERAL LEG PAIN Other details as noted in HPI Constitutional: denies: chills, fever Eyes: denies: eye pain, eye discharge, vision change ENT: denies: ear pain, throat pain Respiratory: SOB with exertion. denies: cough, wheezing Cardiovascular: dyspnea on exertion. denies: chest pain, palpitations Endocrine: no symptoms reported Gastrointestinal: denies: abdominal pain, nausea, diarrhea Genitourinary: denies: urgency, dysuria Musculoskeletal: denies: back pain, joint swelling, arthralgia Skin: denies: rash, lesions Neurological: denies: headache, weakness, paresthesias Psychiatric: denies: anxiety, depression Hematological/Lymphatic: denies: easy bleeding, easy bruising ED Past Medical Hx - Past Medical History Previous Medical History?: Yes Hx Hypertension: Yes Hx Heart Attack/AMI: Yes Hx Congestive Heart Failure: Yes Hx Diabetes: Yes Hx GERD: Yes Hx Liver Disease: Yes (Hepatitis C) Hx Renal Disease: Yes (CKD) Hx Kidney Stones: Yes Hx Asthma: No Hx COPD: No Hx HIV: No Additional medical history: HEP C, HIGH CHOLESTEROL - Surgical History Hx Pacemaker: No Hx Internal Defibrillator: No Additional Surgical History: left inguinal hernia - Family History Family history: no significant - Social History Smoking Status: Current Every Day Smoker Substance Use Type: None - Medications Home Medications: Home Medications Medication Instructions Recorded Confirmed Last Taken Type Aspirin [Aspirin BABY CHEW TAB] 81 mg PO ONCE 08/29/13 01/30/19 07/26/16 History Bisoprolol Fumarate [Zebeta] 10 mg PO DAILY 04/24/15 01/30/19 07/26/16 History ISOSORBIDE MONOnitrate [Imdur ER] 30 mg PO QAC 04/24/15 01/30/19 07/26/16 History Albuterol Sulfate [Proair 90 mcg IH QID PRN 12/16/15 01/30/19 07/26/16 History Respiclick] Atorvastatin Calcium [Lipitor] 80 mg PO QHS 12/16/15 01/30/19 07/26/16 History Docusate Sodium [Colace CAP] 100 mg PO BID PRN 12/16/15 01/30/19 07/26/16 History Ergocalciferol (Vitamin D2) 50,000 unit PO QWEEK 12/16/15 01/30/19 07/26/16 History [Vitamin D2] Omeprazole 40 mg PO BID 12/16/15 01/30/19 07/26/16 History Losartan [Cozaar] 50 mg PO QDAY #30 12/17/15 01/30/19 07/26/16 Rx hydrALAZINE [Apresoline TAB] 25 mg PO TID #90 tablet 12/17/15 01/30/19 07/26/16 Rx Prasugrel [Effient] 10 mg PO QDAY #30 tablet 12/20/15 01/30/19 07/26/16 Rx Sertraline [Zoloft] 10 mg PO QDAY 08/27/16 01/30/19 07/26/16 History Tamsulosin [Flomax] 0.4 mg PO DAILY 08/27/16 01/30/19 07/26/16 History amLODIPine 10 mg PO DAILY 08/27/16 01/30/19 07/26/16 History cloNIDine [Clonidine] 1 each TRANSDERMA QWEEK 08/27/16 01/30/19 07/25/16 History hydrALAZINE [Apresoline TAB] 50 mg PO Q8HR #90 tablet 01/31/19 Unknown Rx Aspirin 325 mg PO ONCE #30 tablet 09/20/19 Unknown Rx ISOSORBIDE MONOnitrate [Imdur ER] 30 mg PO DAILY #30 tab.er.24h 09/20/19 Unknown Rx Cetirizine HCl [Zyrtec 10mg tab] 10 mg PO DAILY PRN #10 tablet 06/18/20 Unknown Rx HYDROcodone/APAP 5-325 [Campbell 1 each PO Q4HR PRN #10 tablet 06/18/20 Unknown Rx 5/325] ED Physical Exam - General Limitations: No Limitations General appearance: alert, in no apparent distress - Head Head exam: Present: atraumatic, normocephalic - Eye Eye exam: Present: normal appearance - ENT ENT exam: Present: mucous membranes moist - Neck Neck exam: Present: normal inspection - Respiratory Respiratory exam: Present: normal lung sounds bilaterally. Absent: respiratory distress - Cardiovascular Cardiovascular Exam: Present: regular rate, normal rhythm. Absent: systolic murmur, diastolic murmur, rubs, gallop - GI/Abdominal GI/Abdominal exam: Present: soft, normal bowel sounds - Rectal Rectal exam: Present: deferred - Extremities Exam Extremities exam: Present: normal inspection, full ROM, tenderness, pedal edema, calf tenderness, other (Bilateral equal pulses noted in the feet.) - Back Exam Back exam: Present: normal inspection - Neurological Exam Neurological exam: Present: alert, oriented X3 - Psychiatric Psychiatric exam: Present: normal affect, normal mood - Skin Skin exam: Present: warm, dry, intact, normal color. Absent: rash ED Course Vital Signs 06/18/20 14:03 Temperature 98.2 F Pulse Rate 79 Respiratory 24 Rate Blood Pressure 154/65 [Right] O2 Sat by Pulse 93 Oximetry - Reevaluation(s) Reevaluation #1: Patient will be given hydrocodone for his leg pain and the 300 mg of Plavix per the vascular surgery request. I discussed all results and clinical findings with patient. I discussed plan of care with patient. Patient agrees with plan of care. Patient is stable for discharge. Patient will be discharged home. Patient given discharge in structions. Patient voiced understanding of discharge instructions. 06/18/20 20:11 - Consultations Consultation #1: I discussed the case with vascular surgery, Dr. Herrera. I question recommends discharge and giving him 300 mg Plavix and have him follow-up in Dr. Herrera, vascular clinic in the morning at 9 AM. 06/18/20 20:02 ED Medical Decision Making - Lab Data Result diagrams: 06/18/20 15:50 06/18/20 15:50 - EKG Data -: EKG Interpreted by Me EKG shows normal: sinus rhythm, axis, intervals, QRS complexes, ST-T waves Rate: normal - EKG Data Interpretation: LVH - Radiology Data Radiology results: report reviewed, image reviewed interpreted by me: Chest x-ray: No pneumonia, no pneumothorax, no foreign body, no osseous findings, no acute findings CHEST 2 VIEWS INDICATION / CLINICAL INFORMATION: SOB, BLE edema. COMPARISON: 09/20/2019 FINDINGS: SUPPORT DEVICES: None. HEART / MEDIASTINUM: Stable moderate cardiomegaly LUNGS / PLEURA: No significant pulmonary or pleural abnormality. No pneumothorax. ADDITIONAL FINDINGS: No significant additional findings. IMPRESSION: 1. Cardiomegaly without CHF DUPLEX DOPPLER LOWER EXTREMITY ARTERIAL, BILATERAL INDICATION: BLE edema and pain, poor pulses. TECHNIQUE: Arterial duplex examination of both lower extremities performed using B-mode, color flow and spectral Doppler assessment. FINDINGS: RIGHT: Common Femoral Artery: PSV 129 cm/sec. Biphasic waveform. Proximal SFA: PSV 133 cm/sec. Biphasic waveform. Mid SFA: PSV 34 cm/sec. Monophasic waveform. Distal SFA: PSV 21 cm/sec. Monophasic waveform. Popliteal artery: PSV 41 cm/sec. Monophasic waveform. Posterior tibial artery: PSV 37 cm/sec. Monophasic waveform. Dorsalis Pedis Artery: PSV 36 cm/sec. Monophasic waveform. LEFT: Common Femoral Artery: PSV 143 cm/sec. Biphasic waveform. Proximal SFA: PSV 217 cm/sec. Monophasic waveform. Mid SFA: PSV 92 cm/sec. Monophasic waveform. Distal SFA: PSV 68 cm/sec. Monophasic waveform. Popliteal artery: PSV 79 cm/sec. Monophasic waveform. Posterior tibial artery: PSV 65 cm/sec. Monophasic waveform. Dorsalis Pedis Artery: PSV 58 cm/sec. Monophasic waveform. Moderate to severe diffuse atherosclerotic plaques are noted bilaterally. IMPRESSION: Lower extremity arterial structures are patent although moderate to severe atherosclerotic plaques are identified with monophasic blood flow bilaterally distal to the mid superficial femoral artery. Greater than 50% stenosis is suspected in the proximal left superficial femoral artery. Doppler Waveform: * Triphasic is normal. * Biphasic is abnormal if clear transition from triphasic signal along vascular tree. * Monophasic is abnormal. DUPLEX DOPPLER LOWER EXTREMITY VEINS, BILATERAL INDICATION / CLINICAL INFORMATION: lower ext pain and swelling. TECHNIQUE: Duplex doppler imaging was performed through the veins of both lower extremities using venous compression and other maneuvers. COMPARISON: 12/29/2013. FINDINGS: RIGHT COMMON FEMORAL VEIN: Negative. RIGHT FEMORAL VEIN: Negative. RIGHT POPLITEAL VEIN: Negative. RIGHT CALF VEINS: Negative. LEFT COMMON FEMORAL VEIN: Negative. LEFT FEMORAL VEIN: Negative. LEFT POPLITEAL VEIN: Negative. LEFT CALF VEINS: Negative. ADDITIONAL FINDINGS: None. IMPRESSION: 1. No sonographic evidence for DVT in either lower extremity. NUCLEAR MEDICINE PERFUSION LUNG SCAN INDICATION: grove, elevated trop. sob. TECHNIQUE: 5.5 mCi of Tc-99m MAA were given by IV. COMPARISON: No recent chest x-ray. FINDINGS: PERFUSION: No significant perfusion defects. ADDITIONAL FINDINGS: None. IMPRESSION: 1. Low probability for pulmonary embolism. - Medical Decision Making Patient is a 64-year-old male who presents emergency room with complaints of shortness of breath and leg pain. Patient states he saw a full human resources coordinator and they recommended to have a vascular work-up since he had calcifications of his arteries on x-ray. Patient had labs done which were essentially unremarkable after finding consistent with end-stage renal disease and elevated troponin secondary to end-stage renal disease and elevated BNP secondary to end-stage renal disease. A repeat troponin was done and the troponin went down. The troponin is secondary to end-stage renal disease and not cardiac. Patient had chest x-ray which was negative for acute findings and no pulmonary edema or CHF changes. Patient had an EKG which was negative for acute findings. I personally reviewed the EKG and the chest x-ray. Patient had a Doppler of the lower extremity veins and was negative for DVT. Patient had a duplex of the arteries of the lower extremity arteries and it was done positive for PAD and stenosis. Patient had a nuclear scan to rule out a PE and it showed low probability. I discussed the case and all the results with our vascular surgeon , Dr. Herrera. Dr. Herrera recommends discharge and given the patient a loading dose of 300 mg of Plavix and have him follow-up in the vascular office in the morning. An appointment was set for the patient at [address] Baron, vascular surgery. Patient states he will go to the vascular surgery clinic. Patient given discharge instructions. Patient given follow-up instructions. Prior to discharge, patient was given 5 mg of hydrocodone and the Plavix. - Differential Diagnosis Shortness of breath, PE, DVT, PAD, leg pain, leg swelling, Critical care attestation.: If time is entered above; I have spent that time in minutes in the direct care of this critically ill patient, excluding procedure time. ED Disposition Clinical Impression: SOB (shortness of breath), Bilateral lower extremity pain, PAD (peripheral artery disease), Elevated troponin, ESRD (end stage renal disease) Disposition: TO HOME OR SELFCARE Is pt being admited?: No Does the pt Need Aspirin: No Condition: Stable Instructions: Peripheral Vascular Disease, [id number] Additional Instructions: Patient to follow-up with primary care in 2 to 3 days. Patient to follow-up with Dr. Herrera, vascular surgery in the morning at 9 AM.. Patient to rest. Patient to increase water. Patient to avoid strenuous exercise or heavy lifting until cleared by vascular surgery and primary care.. Patient to take meds as directed. Patient to return to the ER if condition worsens, changes or new symptoms arise. Prescriptions: HYDROcodone/APAP 5-325 [Campbell 5/325] 1 each PO Q4HR PRN #10 tablet PRN Reason: Pain Cetirizine HCl [Zyrtec 10mg tab] 10 mg PO DAILY PRN #10 tablet PRN Reason: Itching Referrals: PRIMARY MD ROCHELLE [Primary Care Provider] - 2-3 Days YENY HERRERA MD [Staff Physician] - [facility] Time of Disposition: 20:22
--- NOTE | 2020-06-18 18:25 | Vascular Lab Report ---
DUPLEX DOPPLER LOWER EXTREMITY VEINS, BILATERAL INDICATION / CLINICAL INFORMATION: lower ext pain and swelling. TECHNIQUE: Duplex doppler imaging was performed through the veins of both lower extremities using venous [place] and other maneuvers. COMPARISON: 12/29/2013. FINDINGS: RIGHT COMMON FEMORAL VEIN: Negative. RIGHT FEMORAL VEIN: Negative. RIGHT POPLITEAL VEIN: Negative. RIGHT CALF VEINS: Negative. LEFT COMMON FEMORAL VEIN: Negative. LEFT FEMORAL VEIN: Negative. LEFT POPLITEAL VEIN: Negative. LEFT CALF VEINS: Negative. ADDITIONAL FINDINGS: None. IMPRESSION: 1. No sonographic evidence for DVT in either lower extremity. Signer Name: Bola Anaya MD Signed: 06/18/2020 6:21 PM Workstation Name: [id number]
--- NOTE | 2020-06-18 19:32 | Nuclear Medicine Report ---
NUCLEAR MEDICINE PERFUSION LUNG SCAN INDICATION: grove, elevated trop. sob. TECHNIQUE: 5.5 mCi of Tc-99m MAA were given by IV. COMPARISON: No recent chest x-ray. FINDINGS: PERFUSION: No significant perfusion defects. ADDITIONAL FINDINGS: None. IMPRESSION: 1. Low probability for pulmonary embolism. Signer Name: Ezequiel Boone MD Signed: 06/18/2020 7:28 PM Workstation Name: [email or web address]
[2020-06-18] MEDS ORDERED: CLOPIDOGREL 300 MG TAB PO ONE (20:08)
[2020-06-18] MEDS ORDERED: HYDROcodone/ACETAMINOPHEN 5-325 MG TAB PO ONE (20:08)
[2020-06-18 22:42] VITALS: BP 128/80
--- NOTE | 2020-06-20 17:05 | Electrocardiograph Report ---
[facility] Test Date: 2020-06-18 Test Time: 14:58:27 Pat Name: TY MAURER Department: Room: Gender: M Child Protective Services Social Worker: KELSY : 1955 Requested By: CAESAR SOLO Order Number: [id number] Reading MD: Yolanda Sierra Measurements Intervals [place] Rate: 78 P: 63 [place]: 199 QRS: -9 QRSD: 111 T: 167 QT: 430 QTc: 489 Interpretive Statements Sinus rhythm Left atrial enlargement LVH with secondary repolarization abnormality No previous ECG available for comparison Electronically Signed On 06-20-2020 17:05:30 EDT by Yolanda Sierra
== END 2020-06-18 22:45 | disposition home or self-care (01) ==
LOC: ED 13:42
DX: I13.2 Hypertensive heart and chronic kidney disease with heart failure and with stage 5 chronic kidney disease, or end stage renal disease (principal); N18.6 End stage renal disease; I50.9 Heart failure, unspecified; E11.22 Type 2 diabetes mellitus with diabetic chronic kidney disease; E11.51 Type 2 diabetes mellitus with diabetic peripheral angiopathy without gangrene; R06.02 Shortness of breath; R79.89 Other specified abnormal findings of blood chemistry; M79.604 Pain in right leg; M79.605 Pain in left leg; K21.9 Gastro-esophageal reflux disease without esophagitis; F17.200 Nicotine dependence, unspecified, uncomplicated; I25.2 Old myocardial infarction; E78.00 Pure hypercholesterolemia, unspecified; Z79.899 Other long term (current) drug therapy; Z88.8 Allergy status to other drugs, medicaments and biological substances; Z98.890 Other specified postprocedural states
CPT/HCPCS: 36415; 71046; 78580; 80053; 80061; 83880; 84484; 85025; 93005; 93925; 93970; 99284; A9540

== ENCOUNTER 2020-08-26 07:55 | Emergency (ER) | payer MEDICARE, OTHER ==
[2020-08-26] MEDS ORDERED: diphenhydrAMINE 25 MG CAP PO ONE (09:53)
[2020-08-26] MEDS ORDERED: ACETAMINOPHEN 500 MG TAB PO ONE (09:53)
--- NOTE | 2020-08-26 10:00 | Emergency Department Report ---
ED General Adult HPI - General Chief complaint: Pain General Stated complaint: PAIN IN LEGS, BACK, HANDS Time Seen by Provider: 08/26/20 09:33 Source: patient Mode of arrival: Wheelchair Limitations: No Limitations - History of Present Illness Initial comments: 65-year-old male patient with history of end-stage renal disease presents to the emergency department with complaints of a painful pruritic rash to his back and feet for approximately 2 months. Dates his symptoms have worsened over the last 2 weeks. He was evaluated by a fish cutting machine operator at the [place] recently and underwent cryotherapy. States his symptoms have not improved since cryotherapy however he has not scheduled a follow-up appointment with the fish cutting machine operator. Denies fever, neck stiffness, mental status changes, chest pain, shortness of breath, syncope, vomiting. Denies all other complaints at this time. Severity scale (0 -10): 10 - Related Data Home Medications Medication Instructions Recorded Confirmed Last Taken Aspirin [Aspirin BABY CHEW TAB] 81 mg PO ONCE 08/29/13 01/30/19 07/26/16 Bisoprolol Fumarate [Zebeta] 10 mg PO DAILY 04/24/15 01/30/19 07/26/16 ISOSORBIDE MONOnitrate [Imdur ER] 30 mg PO QAC 04/24/15 01/30/19 07/26/16 Albuterol Sulfate [Proair 90 mcg IH QID PRN 12/16/15 01/30/19 07/26/16 Respiclick] Atorvastatin Calcium [Lipitor] 80 mg PO QHS 12/16/15 01/30/19 07/26/16 Docusate Sodium [Colace CAP] 100 mg PO BID PRN 12/16/15 01/30/19 07/26/16 Ergocalciferol (Vitamin D2) 50,000 unit PO QWEEK 12/16/15 01/30/19 07/26/16 [Vitamin D2] Omeprazole 40 mg PO BID 12/16/15 01/30/19 07/26/16 Sertraline [Zoloft] 10 mg PO QDAY 08/27/16 01/30/19 07/26/16 Tamsulosin [Flomax] 0.4 mg PO DAILY 08/27/16 01/30/19 07/26/16 amLODIPine 10 mg PO DAILY 08/27/16 01/30/19 07/26/16 cloNIDine [Clonidine] 1 each TRANSDERMA QWEEK 08/27/16 01/30/19 07/25/16 Previous Rx's Medication Instructions Recorded Last Taken Type Losartan [Cozaar] 50 mg PO QDAY #30 12/17/15 07/26/16 Rx hydrALAZINE [Apresoline TAB] 25 mg PO TID #90 tablet 12/17/15 07/26/16 Rx Prasugrel [Effient] 10 mg PO QDAY #30 tablet 12/20/15 07/26/16 Rx hydrALAZINE [Apresoline TAB] 50 mg PO Q8HR #90 tablet 01/31/19 Unknown Rx Aspirin 325 mg PO ONCE #30 tablet 09/20/19 Unknown Rx ISOSORBIDE MONOnitrate [Imdur ER] 30 mg PO DAILY #30 tab.er.24h 09/20/19 Unknown Rx Cetirizine HCl [Zyrtec 10mg tab] 10 mg PO DAILY PRN #10 tablet 06/18/20 Unknown Rx HYDROcodone/APAP 5-325 [[place] 1 each PO Q4HR PRN #10 tablet 06/18/20 Unknown Rx 5/325] Lidocaine [Lidocaine GEL] 30 gm TP TID #1 tube 08/26/20 Unknown Rx Allergies Allergy/AdvReac Type Severity Reaction Status Date / Time metformin Allergy Intermediate Diarrhea Verified 06/18/20 14:02 lisinopril Allergy Unknown Verified 06/18/20 14:02 ED Review of Systems ROS: Stated complaint: PAIN IN LEGS, BACK, HANDS Other details as noted in HPI Other: GENERAL: Negative for fever, chills, weight change, anorexia, fatigue. ENT: Negative for ear pain, difficulty hearing, sore throat, nasal congestion, epistaxis. CARDIOVASCULAR: Negative for chest pain, palpitations, lower extremity swelling. PULMONARY: Negative for cough, dyspnea, wheezing, orthopnea, cyanosis. GASTROINTESTINAL: Negative for abdominal pain, nausea, vomiting, diarrhea, constipation. MUSCULOSKELETAL: Negative for joint pain, joint swelling, myalgias, back pain, neck pain. NEUROLOGICAL: Negative for headache, seizure, syncope, paresthesias, weakness. INTEGUMENTARY: Positive for rash. HEMATOLOGICAL: Negative for hemoptysis, hematemesis, hematochezia, hematuria. PSYCHIATRIC: Negative for hallucinations, suicidal ideation, homicidal ideation, anxiety, depression. ED Past Medical Hx - Past Medical History Previous Medical History?: Yes Hx Hypertension: Yes Hx Heart Attack/AMI: Yes Hx Congestive Heart Failure: Yes Hx Diabetes: Yes Hx GERD: Yes Hx Liver Disease: Yes (Hepatitis C) Hx Renal Disease: Yes (CKD) Hx Kidney Stones: Yes Hx Asthma: No Hx COPD: No Hx HIV: No Additional medical history: HEP C, HIGH CHOLESTEROL - Surgical History Past Surgical History?: Yes Hx Pacemaker: No Hx Internal Defibrillator: No Additional Surgical History: left inguinal hernia - Social History Smoking Status: Current Every Day Smoker Substance Use Type: None - Medications Home Medications: Home Medications Medication Instructions Recorded Confirmed Last Taken Type Aspirin [Aspirin BABY CHEW TAB] 81 mg PO ONCE 08/29/13 01/30/19 07/26/16 History Bisoprolol Fumarate [Zebeta] 10 mg PO DAILY 04/24/15 01/30/19 07/26/16 History ISOSORBIDE MONOnitrate [Imdur ER] 30 mg PO QAC 04/24/15 01/30/19 07/26/16 History Albuterol Sulfate [Proair 90 mcg IH QID PRN 12/16/15 01/30/19 07/26/16 History Respiclick] Atorvastatin Calcium [Lipitor] 80 mg PO QHS 12/16/15 01/30/19 07/26/16 History Docusate Sodium [Colace CAP] 100 mg PO BID PRN 12/16/15 01/30/19 07/26/16 History Ergocalciferol (Vitamin D2) 50,000 unit PO QWEEK 12/16/15 01/30/19 07/26/16 Hi story [Vitamin D2] Omeprazole 40 mg PO BID 12/16/15 01/30/19 07/26/16 History Losartan [Cozaar] 50 mg PO QDAY #30 12/17/15 01/30/19 07/26/16 Rx hydrALAZINE [Apresoline TAB] 25 mg PO TID #90 tablet 12/17/15 01/30/19 07/26/16 Rx Prasugrel [Effient] 10 mg PO QDAY #30 tablet 12/20/15 01/30/19 07/26/16 Rx Sertraline [Zoloft] 10 mg PO QDAY 08/27/16 01/30/19 07/26/16 History Tamsulosin [Flomax] 0.4 mg PO DAILY 08/27/16 01/30/19 07/26/16 History amLODIPine 10 mg PO DAILY 08/27/16 01/30/19 07/26/16 History cloNIDine [Clonidine] 1 each TRANSDERMA QWEEK 08/27/16 01/30/19 07/25/16 History hydrALAZINE [Apresoline TAB] 50 mg PO Q8HR #90 tablet 01/31/19 Unknown Rx Aspirin 325 mg PO ONCE #30 tablet 09/20/19 Unknown Rx ISOSORBIDE MONOnitrate [Imdur ER] 30 mg PO DAILY #30 tab.er.24h 09/20/19 Unknown Rx Cetirizine HCl [Zyrtec 10mg tab] 10 mg PO DAILY PRN #10 tablet 06/18/20 Unknown Rx HYDROcodone/APAP 5-325 [[place] 1 each PO Q4HR PRN #10 tablet 06/18/20 Unknown Rx 5/325] Lidocaine [Lidocaine GEL] 30 gm TP TID #1 tube 08/26/20 Unknown Rx ED Physical Exam - General Limitations: No Limitations - Other Other exam information: General: Awake, appropriately interactive, no acute distress. Neck: Supple. Full range of motion intact. Cardiovascular: Normal peripheral perfusion. Pulmonary: No respiratory distress. Patient is speaking normally without use of accessory muscles. Skin: Four small round ulcerated lesions noted to the mid-thoracic back. No evidence of secondary cellulitis. Neurological: No facial asymmetry. Speech is clear. Follows commands. Patient is alert and oriented. Musculoskeletal: Moves all four extremities spontaneously with normal range of motion. Psych: Cooperative. Appropriate mood and affect. ED Course Vital Signs 08/26/20 08/26/20 07:59 10:24 Temperature 97.5 F L Pulse Rate 72 68 Respiratory 18 Rate Blood Pressure 115/96 110/88 [Right] O2 Sat by Pulse 96 Oximetry ED Medical Decision Making - Medical Decision Making Patient presents to the emergency department for evaluation of ongoing rash on his back for 2 months which has already been assessed by his fish cutting machine operator. Symptoms are no different today. The patient is alert and well appearing. There are no petichiae or purpura, no mucous membrane lesions, and no bullae. The patient is without findings concerning for worrisome systemic illness requiring further treatment, additional testing, admission, or specialist consultation at this time. Additional testing is not indicated at this time, but should be considered if symptoms worsen or recur. Discussed findings, presumptive diagnosis, need for follow-up and specific signs/symptoms that should prompt immediate return to the emergency department. Instructions were explained in detail to the patient in addition to giving written discharge information. Emphasized the importance of scheduling outpatient follow-up appointment with his fish cutting machine operator for definitive management of ongoing rash. Patient expressed understanding and was given the opportunity to ask questions, all of which were satisfactorily answered prior to discharge home. Critical care attestation.: If time is entered above; I have spent that time in minutes in the direct care of this critically ill patient, excluding procedure time. ED Disposition Clinical Impression: Rash and nonspecific skin eruption Disposition: TO HOME OR SELFCARE Is pt being admited?: No Does the pt Need Aspirin: No Condition: Stable Instructions: Rash, Adult Additional Instructions: Use topical Lidoderm as directed. Take Benadryl as needed for itching. Take Tylenol every 4 hours as needed for pain. You must follow-up with a fish cutting machine operator for definitive management of ongoing rash. Call today to schedule an appointment. See referral information below. Return to the emergency department immediately for new or worsening symptoms. Prescriptions: Lidocaine [Lidocaine GEL] 30 gm TP TID #1 tube Referrals: ANASTACIA ADAMSON MD [Referring] - 3-5 Days Time of Disposition: 10:02
[2020-08-26 10:25] VITALS: BP 110/88
== END 2020-08-26 10:26 | disposition home or self-care (01) ==
LOC: ED 07:55
DX: R21 Rash and other nonspecific skin eruption (principal); I10 Essential (primary) hypertension; E11.9 Type 2 diabetes mellitus without complications; K21.9 Gastro-esophageal reflux disease without esophagitis; E78.00 Pure hypercholesterolemia, unspecified; Z87.442 Personal history of urinary calculi; Z88.8 Allergy status to other drugs, medicaments and biological substances; Z79.899 Other long term (current) drug therapy
CPT/HCPCS: 99282